=== PATIENT | female | born 1955 | race Caucasian/White ===

== ENCOUNTER 2016-09-27 19:42 | Inpatient (IN) | payer BC, OTHER ==
[~2016-09-27] VITALS: Ht 175.3 cm; Wt 81.8 kg
[~2016-09-27 19:42] MED LIST: ASPI81TA28 PO; ATOR-22 PO; CITA10TA8 PO; ELQ25 PO; POTA-331 PO; PRLSR20 PO; TPRSR25 PO; VTMD PO
[2016-09-27] MEDS ORDERED: CYCLOBENZAPRINE HCL 10 MG TAB PO STA (21:19)
[2016-09-27] MEDS ORDERED: HYDROmorphone INJ 1 MG/ML SYR IM STA (21:19)
[2016-09-27] MEDS ORDERED: METHYLPREDNISOLONE 125 MG VIAL IM STA (21:19)
[2016-09-27] MEDS ORDERED: HYDROmorphone INJ 1 MG/ML SYR IV STA (21:22)
[2016-09-27] MEDS ORDERED: METHYLPREDNISOLONE 125 MG VIAL IV STA (21:22)
[2016-09-27] MEDS ORDERED: POTA10TA32 PO (21:32)
[2016-09-27] MEDS ORDERED: METO25TA3 PO (21:32)
[2016-09-27] MEDS ORDERED: LISI-729 PO (21:32)
[2016-09-27] MEDS ORDERED: RALO60TA12 PO (21:32)
[2016-09-27] MEDS ORDERED: LPT/40 PO (21:32)
[2016-09-27] MEDS ORDERED: CETI10TA84 PO (21:32)
--- NOTE | 2016-09-27 21:32 | EMERGENCY ROOM VISIT NOTE ---
History Report prepared by Chuck: Len Graham Under the Supervision of: Dr. Nola Monreal M.D. First contact with patient: 21:17 Chief Complaint: BACK PAIN Stated Complaint: BACK PAIN, UNABLE TO MOVE LEGS History of Present Illness The patient is a 61 year old female who presents to the Emergency Room with complaints of severe and worsening lower back pain that began that began 1.5 hours prior to arrival. She is having pain in her lower back bilaterally, but states it is much worse in her left. She also has pain radiating down the back of her left leg into her leg ankle. The patient states that she was fine all day today, she ran multiple errands and walked her dog. Her pain onset suddenly while cooking dinner. She could not walk to the door under her own power after her pain onset. The patient has had multiple cases of melanoma in the past, and has had breast cancer. She never received any chemotherapy treatments. Source of History: patient Onset: 1.5 hours [employer] Position: back (lower) Symptom Intensity: severe Timing: worsening Note: Pain is radiating down left leg. Review of Systems See HPI for pertinent positives & negatives. A total of 10 systems reviewed and were otherwise negative. Past Medical & Surgical Medical Problems: (1) Back pain (2) HTN (hypertension) (3) Hyperlipidemia (4) Melanoma (5) Paroxysmal atrial fibrillation (6) UTI (urinary tract infection) Surgical Problems: (1) H/O adenoidectomy (2) S/P appendectomy (3) S/P partial hysterectomy Family History Hypertension Social History Smoking Status: Never Smoker Alcohol Use: none Marital Status: single Housing Status: lives alone Occupation Status: retired Current/Historical Medications Scheduled Aspirin (Aspirin Ec), 81 MG PO HS Atorvastatin (Lipitor), 40 MG PO HS Cetirizine (Zyrtec), 10 MG PO HS Citalopram Hydrobromide (Celexa), 10 MG PO HS Cyclobenzaprine HCl (Cyclobenzaprine HCl), 10 MG PO TID Ergocalciferol (Vitamin D), 50,000 INTER.UNIT PO WK Lisinopril (Zestril), 5 MG PO HS Metoprolol Succinate (Toprol Xl), 50 MG PO QAM Omeprazole (Prilosec), 20 MG PO HS Potassium Chloride Microencaps (Potassium Chloride Er), 10 MEQ PO QAM Raloxifene Hcl (Evista), 60 MG PO QAM Scheduled PRN Docusate Sodium (Colace), 1 CAP PO DAILY PRN for Constipation Oxycodone/Acetaminophen 5MG/325MG (Percocet 5MG/325MG), 1-2 TABLETS PO Q6 PRN for Pain Polyethylene (Miralax), 1 TBS PO DAILY PRN for Constipation Durable Medical Equipment Misc. Devices (Getgo Rolling Walker), EA Allergies Coded Allergies: Naproxen (Verified Allergy, Severe, Hives and swelling of the throat, 09/27) Ibuprofen (Verified Allergy, Intermediate, Hives, 09/27/16) POLLEN (Verified Allergy, Unknown, 10/20/06) Nitrofurantoin (Verified Adverse Reaction, Severe, HEPATITIS, 02/06/11) Clavulanic Acid (Unverified Adverse Reaction, Mild, NAUSEA = BetaLactomase inhibitors, 09/05/14) Physical Exam Vital Signs Date Time Temp Pulse Resp B/P Pulse Ox O2 Delivery O2 Flow Rate FiO2 09/28/16 00:32 80 16 167/93 100 Room Air 09/27/16 21:44 82 16 138/83 100 Room Air 09/27/16 19:47 36.7 66 16 157/101 98 Physical Exam Vital signs reviewed. General: Well-appearing female, in mild distress and somewhat agitated HEENT: No scleral icterus, PERRLA, neck supple. Atraumatic. Cardiovascular: Regular rate and rhythm, no extra sounds. Pulmonary: Clear to auscultation bilaterally, normal work of breathing. Abdomen: Soft, nontender, nondistended, positive bowel sounds. Musculoskeletal: Atraumatic, no peripheral edema. BACK: There is tenderness to the lumbar paraspinous muscles, no tenderness along the lumbar spine. Positive left straight leg raise. Equal strength in bilateral lower extremities. Neurologic: Patient awake alert and oriented x 3, full strength in all 4 extremities. Cranial nerves 2 through 12 grossly intact. Skin: Warm, dry, no rash Medical Decision & Procedures ER Provider Diagnostic Interpretation: X-ray results as stated below per my interpretation and radiologist interpretation. Other radiology results as stated below per my review and radiologist interpretation: L-SPINE MIN 4 VIEWS ROUTINE CLINICAL HISTORY: Low back pain with left lower extremity radiculopathy. COMPARISON STUDY: No previous studies for comparison. FINDINGS: There is an age-indeterminate superior endplate L1 compression deformity. There is an old superior endplate T11 can cavity. There are multilevel degenerative changes. No subluxations are visualized. No destructive lesions are evident. There is a transitional vertebra with partial sacralization of the L5 vertebra. IMPRESSION: 1. Mild multilevel degenerative changes 2. Mild age-indeterminate superior endplate L1 compression deformity 3. No subluxations identified Electronically signed by: Dominic Vergara M.D. 09/27/2016 10:35 PM Dictated Date/Time: 09/27/2016 10:32 PM CHEST X-RAY: Laboratory Results Test 09/27/16 21:30 09/27/16 21:55 09/27/16 22:45 Urine Color YELLOW Urine Appearance CLEAR (CLEAR) Urine pH 6.0 (4.5-7.5) Urine Specific [place] 1.007 (1.000-1.030) Urine Protein NEG (NEG) Urine Glucose (UA) NEG (NEG) Urine Ketones NEG (NEG) Urine Occult Blood NEG (NEG) Urine Nitrite NEG (NEG) Urine Bilirubin NEG (NEG) Urine Urobilinogen NEG (NEG) Urine Leukocyte Esterase NEG (NEG) Immature Granulocyte % (Auto) 0.4 % White Blood Count 13.59 K/uL (4.8-10.8) Red Blood Count 3.73 M/uL (4.2-5.4) Hemoglobin 13.0 g/dL (12.0-16.0) Hematocrit 37.7 % (37-47) Mean Corpuscular Volume 101.1 fL (80-100) Mean Corpuscular Hemoglobin 34.9 pg (25-34) Mean Corpuscular Hemoglobin Concent 34.5 g/dl (32-36) Platelet Count 317 K/uL (130-400) Mean Platelet Volume 9.3 fL (7.4-10.4) Neutrophils (%) (Auto) 77.0 % Lymphocytes (%) (Auto) 15.8 % Monocytes (%) (Auto) 6.5 % Eosinophils (%) (Auto) 0.2 % Basophils (%) (Auto) 0.1 % Neutrophils # (Auto) 10.45 K/uL (1.4-6.5) Lymphocytes # (Auto) 2.15 K/uL (1.2-3.4) Monocytes # (Auto) 0.89 K/uL (0.11-0.59) Eosinophils # (Auto) 0.03 K/uL (0-0.5) Basophils # (Auto) 0.02 K/uL (0-0.2) Immature Granulocyte # (Auto) 0.05 K/uL (0.00-0.02) Magnesium Level 1.9 mg/dl (1.8-2.4) Total Bilirubin 0.3 mg/dl (0.2-1) Direct Bilirubin 0.1 mg/dl (0-0.2) Aspartate Amino Transf (AST/SGOT) 89 U/L (15-37) Alanine Aminotransferase (ALT/SGPT) 63 U/L (12-78) Alkaline Phosphatase 90 U/L (45-117) Total Protein 7.8 gm/dl (6.4-8.2) Albumin 3.9 gm/dl (3.4-5.0) Ethyl Alcohol mg/dL 175.0 mg/dl (0-3) Laboratory results per my review. Medications Administered Medications (Trade) Dose Ordered Sig/Jerardo Route Start Time Stop Time Status Last Admin Dose Admin Cyclobenzaprine HCl (Flexeril Tab) 10 mg NOW STAT PO 09/27/16 21:19 09/27/16 21:21 DC 09/27/16 21:46 10 MG Hydromorphone HCl (Dilaudid Inj) 1 mg NOW STAT IV 09/27/16 21:22 09/27/16 21:25 DC 09/27/16 21:48 1 MG Methylprednisolone Sodium Succinate (Solu-Medrol IV) 125 mg NOW STAT IV 09/27/16 21:22 09/27/16 21:25 DC 09/27/16 21:47 125 MG ED Course 2117: Past medical records reviewed. The patient was evaluated in room A11. A complete history and physical examination was performed. 2118: Ordered Cyclobenzaprine 10 mg PO, Methylprednisolone 125 mg IM, Dilaudid 1 mg IM. 2121: Ordered Methylprednisolone 125 mg IV, Dilaudid 1 mg IV. 2355: I discussed the case with Dr. Farah [facility] Hospitalist, he will evaluate the patient for further treatment. Medical Decision Differential diagnosis: Etiologies such as musculoskeletal, disc herniation, fracture, aortic disease, metastatic disease, cord compression, discitis, infection, renal colic, gastrointestinal, acute exacerbation of chronic back pain, sciatica, cauda equina, as well as others were entertained. This pt was evaluated and appeared to be in no distress. IV access was obtained and lab work was drawn. Pt was medicated with po flexeril, IV dilaudid and solu-medral. Lumbar spine XR were obtained and read as above, with an L1 superior endplate fracture. Pt was feeling improved but failed an ambulation trial. She is unable to ambulate d/t pain. Pt will be evaluated by the hospitalist service for further management. Consults Time Called: [phone] Consulting Physician: Dr. Sofi Vickers Hospitalist Returned Call: [phone] I discussed the case with Dr. Sofi Vickers Hospitalist, he will evaluate the patient for further treatment. Impression Primary Impression: Compression fracture of L1 lumbar vertebra Additional Impression: Lumbar pain Scribe Attestation The scribe's documentation has been prepared under my direction and personally reviewed by me in its entirety. I confirm that the note above accurately reflects all work, treatment, procedures, and medical decision making performed by me. Departure Information Dispostion Being Evaluated By Hospitalist Prescriptions Docusate Sodium (COLACE) 100 Mg Cap 1 CAP PO DAILY Y for Constipation, #30 CAP OVER THE COUNTER Prov: Rosa Telles M.D. 09/29/16 Polyethylene (Miralax) 17 Gm Pow 1 TBS PO DAILY Y for Constipation for 14 Days OVER THE COUNTER MIX IN 8 OZ OF WATER OR ANY BEVERAGE Prov: Rosa Telles M.D. 09/29/16 Misc. Devices (GETGO ROLLING WALKER) 1 Mis Mis EA, #1 Prov: Rosa Telles M.D. 09/29/16 Oxycodone/Acetaminophen 5MG/325MG (PERCOCET 5MG/325MG) Tab 1-2 TABLETS PO Q6 Y for Pain, #30 TAB Prov: Rosa Telles M.D. 09/29/16 Cyclobenzaprine HCl (Cyclobenzaprine HCl) 10 Mg Tab 10 MG PO TID for 30 Days, #90 TAB Prov: Rosa Telles M.D. 09/29/16 Referrals No Doctor, Assigned (PCP) Patient Instructions My [facility] Problem Qualifiers Primary Impression: Compression fracture of L1 lumbar vertebra Encounter type: initial encounter Fracture type: closed Qualified Codes: S32.010A - Wedge compression fracture of first lumbar vertebra, initial encounter for closed fracture Additional Impression: Lumbar pain Chronicity: acute Back pain laterality: left
[2016-09-27 21:58] LABS: URINE APPEARANCE CLEAR (CLEAR); URINE BILIRUBIN NEG (NEG); URINE COLOR YELLOW; URINE NITRITE NEG (NEG); URINE SPECIFIC GRAVITY 1.007 (1.000-1.030); UROBILINOGEN NEG (NEG); ZZUR CULT IF INDIC CLEAN CATCH NO
[2016-09-27 22:02] LABS: MANUAL MICROSCOPIC REQUIRED? NO; REVIEW REQ? NO
[2016-09-27 22:11] LABS: BASO % 0.1 %; BASO ABS # 0.02 K/uL (0-0.2); COMPLETE YES; EOS % 0.2 %; HEMATOCRIT 37.7 % (37-47); IG% 0.4 %; LYMPH % 15.8 %; LYMPH ABS # 2.15 K/uL (1.2-3.4); MEAN CELL VOLUME 101.1 fL (80-100); MEAN CORPUSCULAR HEMOGLOBIN 34.9 pg (25-34); MEAN CORPUSCULAR HGB CONC 34.5 g/dl (32-36); MEAN PLATELET VOLUME 9.3 fL (7.4-10.4); MONO % 6.5 %; PLATELET COUNT 317 K/uL (130-400); RED BLOOD COUNT 3.73 M/uL (4.2-5.4); WHITE BLOOD COUNT 13.59 K/uL (4.8-10.8)
[2016-09-27 22:29] LABS: BUN/CREATININE RATIO 12.5 (10-20); CREATININE 0.67 mg/dl (0.60-1.20); MAGNESIUM 1.9 mg/dl (1.8-2.4); POTASSIUM 3.8 mmol/L (3.5-5.1)
--- NOTE | 2016-09-27 22:37 | DIAGNOSTIC IMAGING REPORT ---
L-SPINE MIN 4 VIEWS ROUTINE CLINICAL HISTORY: Low back pain with left lower extremity radiculopathy. COMPARISON STUDY: No previous studies for comparison. FINDINGS: There is an age-indeterminate superior endplate L1 compression deformity. There is an old superior endplate T11 can cavity. There are multilevel degenerative changes. No subluxations are visualized. No destructive lesions are evident. There is a transitional vertebra with partial sacralization of the L5 vertebra. IMPRESSION: 1. Mild multilevel degenerative changes 2. Mild age-indeterminate superior endplate L1 compression deformity 3. No subluxations identified Electronically signed by: Dominic Vergara M.D. 09/27/2016 10:35 PM Dictated Date/Time: 09/27/2016 10:32 PM
[2016-09-28] VITALS (10 sets, daily range): BP systolic 157–206; BP diastolic 86–101; PULSE 60–74; TEMP 36.5–37.5; O2SAT 93–96; Ht 175.3 cm; Wt 81.8 kg
[2016-09-28] MEDS ORDERED: ONDANSETRON INJ 2 MG/ML 2 ML VIAL IV PRN (00:45)
[2016-09-28] MEDS ORDERED: IV FLUIDS COMPLETED PRN (00:45)
[2016-09-28] MEDS ORDERED: ACETAMINOPHEN 325 MG TAB PO PRN (00:45)
[2016-09-28] MEDS ORDERED: CYCLOBENZAPRINE HCL 10 MG TAB PO STA (00:48)
--- NOTE | 2016-09-28 03:29 | HISTORY & PHYSICAL EXAMINATION ---
DATE OF ADMISSION: 09/28/2016 PRIMARY CARE PHYSICIAN: Dr. Williamson CHIEF COMPLAINT: Sudden onset spasm and pain in the lower lumbar area, radiation to left leg. 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 Apparently, she complains to have occasional spasm involving the back muscles. This morning, she was fine as she went for shopping. She went to different places. She came home in the evening and suddenly she got these spasm and pain involving the left lower lumbar area and the pain went down to the left leg, up to the ankle. She could not move her leg and then she was brought into the Emergency Room for further evaluation. She denies to have any trauma or any fall recently. She does not have any problem with urine and/or bowel habits. In the ER, she was in pain. She could not elevate the leg and apparent tests including x-ray of the lumbar spine did show age-indeterminate superior endplate L1 compression deformity. Labs and imaging studies are unremarkable otherwise, but given the acuteness of the pain and radiculopathy type of pain, she was admitted to medical floor for physical therapy and also further imaging studies of the spine. PAST MEDICAL HISTORY: Significant for atrial fibrillation not on any anticoagulation, hypertension, hyperlipidemia, history of osteoporosis, history of breast cancer status post surgery and history of malignant melanoma of the trunk. PAST SURGICAL HISTORY: Significant for cardiac catheterization in 2006, minimal luminal irregularities, excision of the right breast, carcinoma in situ, adenoid and tonsillectomy as a child, appendectomy and hysterectomy. FAMILY HISTORY: Mother had diabetes. Father had heart disorder. Mother had high blood pressure as well. Both of them are . SOCIAL HISTORY: She is single. She has one child. She lives alone. She does not smoke and she drinks occasionally. Today she had a drink at about 3:00 p.m. REVIEW OF SYSTEMS: CENTRAL NERVOUS SYSTEM: No headache, no blurred vision, no numbness or tingling in the extremities. RESPIRATORY: No cough or phlegm. She did have slight shortness of breath. No fever, chills or rigors. CARDIOVASCULAR: No chest pain, palpitations. GASTROINTESTINAL: No abdominal pain, nausea, vomiting. GENITOURINARY: No problem with urine and/or bowel habits. MUSCULOSKELETAL: Does have pain and spasm involving the left lower lumbar area. No acute arthritis in any joint. HEENT: Unremarkable. GENERAL EXAMINATION: No rash. ALLERGIES: TO AUGMENTIN, IBUPROFEN, NAPROXEN, NITROFURANTOIN AND POLLEN. MEDICATIONS: She has been on aspirin 81 mg daily, Lipitor 40 mg daily, Vasotec 10 mg at night, Celexa 10 mg at night, vitamin D 50,000 units every week, lisinopril 5 mg daily, Toprol-XL 25 mg tablet 50 mg in the morning, potassium chloride 10 mEq, Evista 60 mg daily, omeprazole 20 mg daily. PHYSICAL EXAMINATION: GENERAL: On examination in the Emergency Room, she was still having some localized pain at the lower back, but the pain was not radiating down to the leg at rest. HEENT: Unremarkable. NECK: Supple. No JVD, no bruits. VITAL SIGNS: Temperature 36.7, pulse is 82, blood pressure 138/83, saturation 100% on room air. CHEST: Clear to auscultate bilaterally. HEART: S1, S2, regular, no murmur. ABDOMEN: Soft, benign, nontender, no organomegaly. Bowel sounds present. EXTREMITIES: Negative for any edema. MUSCULOSKELETAL: Did show localized tenderness involving the lower lumbar area on the left side and straight leg rising on the left side was positive with pain radiating down to the left leg. DTRs 2+ in both sides, no sensory impairment. CENTRAL NERVOUS SYSTEM: Alert, awake and oriented x3. LABORATORY DATA: Noted today; white count was 13.59, H\T\H 13.0/37.7, platelet was 317. Sodium 142, potassium 3.8, chloride 104, carbon dioxide 22, BUN 8, creatinine 0.67. LFTs unremarkable. UA examination; unremarkable. Toxicology; alcohol level of 175. Chest x-ray; pending. EKG; pending. Lumbar spine x-ray; did show mild multilevel degenerative changes, mild age-indeterminate superior L1 endplate compression deformity. No subluxation IMPRESSION AND PLAN: 1. Acute lower lumbar pain with spasm. Clinically has radiculopathy, but no significant symptom associated with it. We will admit the patient to medical- surgical floor, give pain medication and antispasmodic medication, get MRI of the lumbar spine to rule out any compression on the nerve endings. We will get physical therapy evaluation and orthopedic consultation depending on the MRI findings. 2. Atrial fibrillation, rate seems to be under control. Get an EKG. Continue current medications. The patient has not been taking any anticoagulation, only on aspirin. 3. Hypertension. Blood pressure seems to be controlled at this time. Continue current medication. 4. History of cancer of breast and history of melanoma. Has been on Evista for breast cancer. To rule out any compression fracture secondary to metastases, but doubt at this time. 5. Hyperlipidemia. Continue current medication. 6. Gastrointestinal prophylaxis with Proton Pump Inhibitor. 7. Deep venous thrombosis prophylaxis with subQ heparin. 8. Code status. She will be full code. In my clinical judgment, the beneficiary meets criteria as per CMS for 2 midnights stay in the hospital. MTDBrad
[2016-09-28 06:00] LABS: PROTHROMBIN TIME (PATIENT) 10.7 SECONDS (9.0-12.0)
[2016-09-28] MEDS: HEPARIN SOD 5000 UNIT/0.5 ML CARP SQ SCH ×2 (06:22→13:58)
[2016-09-28] MEDS: CYCLOBENZAPRINE HCL 5 MG TAB PO SCH ×2 (07:41→13:57)
[2016-09-28] MEDS: RALOXIFENE 60 MG TAB PO SCH (07:41)
[2016-09-28] MEDS: METOPROLOL SUCC 25MG EXT REL TAB PO SCH (07:41)
[2016-09-28] MEDS: POTASSIUM CHLORIDE 10 MEQ TABCR PO SCH (07:42)
--- NOTE | 2016-09-28 09:20 | DIAGNOSTIC IMAGING REPORT ---
SINGLE VIEW CHEST CLINICAL HISTORY: Atypical chest pain. Dyspnea. FINDINGS: An AP, portable, upright chest radiograph is compared to study dated 09/05/2014. The examination is degraded by portable technique, large body habitus, and patient rotation. The heart is mildly enlarged. The pulmonary vasculature is noncongested. Chronic interstitial thickening is similar to previous. There is minimal left basilar atelectasis. No airspace consolidation, large pleural effusion, or pneumothorax is seen. The bony thorax is grossly intact. IMPRESSION: Mild cardiomegaly with no acute cardiopulmonary abnormality. Electronically signed by: Scooby Mitchell M.D. 09/28/2016 9:18 AM Dictated Date/Time: 09/28/2016 9:17 AM
[2016-09-28] MEDS: HYDROmorphone INJ 1 MG/ML SYR IV PRN ×2 (12:05→18:24)
[2016-09-28] MEDS ORDERED: GADAVIST IV PRN (13:30)
--- NOTE | 2016-09-28 14:29 | DIAGNOSTIC IMAGING REPORT ---
MRI LUMBAR SPINE COMBO CLINICAL HISTORY: Low back pain. Lumbar radiculopathy. COMPARISON STUDY: Radiographs of the lumbar spine dated 09/27/2016. TECHNIQUE: MRI of the lumbar spine is performed utilizing various T1 and T2-weighted sequences in the axial and sagittal planes. Contrast-enhanced sequences are acquired following the IV administration of 8 cc of Gadavist. The examination is degraded by motion artifact. FINDINGS: Lumbar spine: Marrow signal intensity is heterogeneous. There is a mild acute to subacute compression fracture of L1. Minimally retropulsed fragments are identified eccentric to the right. These are retropulsed by approximately 4 mm. Vertebral body height is otherwise maintained throughout the lumbar spine. Alignment is preserved. Chronic degenerative endplate change is present at all levels from L2 to L3 through L5-S1. Mild endplate edema is seen at L2-L3 and L3-L4. Small anterior osteophytes are seen throughout. The transverse and spinous processes are grossly intact. There is no spondylolysis. Intervertebral discs: There is degenerative disc desiccation and mild loss of height seen at the levels. Loss of height is greatest at L2-L3 through L4-L5. Spinal cord: Partially imaged spinal cord is normal in morphology and signal intensity. The conus medullaris terminates at the T12-L1 interspace. The nerve roots of the cauda equina are normal in morphology. No abnormal enhancement is identified on the postcontrast series. T12-L1: There is a small posterior disc bulge. The central canal and neural foramina are widely patent. L1-L2: As noted above, there is an acute to subacute compression fracture of L1. There are retropulsed fragments identified eccentric to the right posterior to the L1 vertebral body. There is likely trace surrounding hemorrhage there is the retropulsed fragments extend approximately 1.8 cm in craniocaudal length and measures 7 mm in maximum AP diameter. Fragment may slightly impinge on the transiting right-sided nerve roots. There is no acquired compromise of the central canal. The neural foramina are patent. L2-L3: There is a posterior disc bulge eccentric to the right with annular fissure. The central canal is patent. There is left-sided subarticular stenosis. The neural foramina are clear. L3-L4: There is posterior disc bulge with annular fissure. The central canal is patent. There is mild bilateral subarticular stenosis. Facet arthropathy is of no consequence. The neural foramina are patent. L4-L5: There is posterior disc bulge with annular fissure. The central canal is clear. There is bilateral subarticular stenosis. The neural foramina are patent. Facet arthropathy is of no consequence and there are small facet joint effusions. L5-S1: There is minimal disc bulge with annular fissure. The central canal and neural foramina are patent. Facet joint effusions are incidentally noted. Sacrum: The visualized sacrum is normal in morphology and signal intensity. Soft tissues: There is mild fatty atrophy of the paraspinous musculature. The partially imaged retroperitoneal structures are grossly unremarkable but incompletely assessed. IMPRESSION: 1. There is a mild acute to subacute compression fracture of L1. 2. No additional bony abnormality is seen throughout the lumbar spine. 3. There are retropulsed fragments from the L1 fracture eccentric to the right with trace associated hemorrhage. This causes mild mass effect and may impinge on the transiting right-sided nerve roots. 4. No large disc herniation is seen. Multilevel lumbosacral spondylosis is detailed above. Dictated: 09/28/2016 2:09 PM Transcribed: 09/28/2016 2:28 PM Iliana Electronically signed by: Scooby Mitchell M.D. 09/28/2016 3:16 PM Dictated Date/Time: 09/28/2016 2:09 PM
--- NOTE | 2016-09-28 16:05 | Progress Note ---
Progress Note ATTENDING NOTE : MRI of lumber spine shows : 1. There is a mild acute to subacute compression fracture of L1. 2. No additional bony abnormality is seen throughout the lumbar spine. 3. There are minimally retropulsed fragments from the L1 fracture eccentric to the right. Additionally, there is likely a small volume of epidural hemorrhage eccentric to the right posterior to the L1 vertebral body. This causes minimal mass effect and may impinge on the transiting right-sided nerve roots. 4. No large disc herniation is seen. Multilevel lumbosacral spondylosis is detailed above. Finding D/w spinel Ortho Dr Kaur -small amount of epidural hge due to L1 Fx - may not possible cause any neurological compromise recommends to keep bed rest pain control will D/c Sub q heparin for DVT prophylaxis , hold Aspirin pt will be seen by Ortho in [place] for possible lumber Brace
--- NOTE | 2016-09-28 17:28 | Progress Note ---
Internal Med Progress Note Date of Service: Sep 28, 2016. Provider Documentation: SUBJECTIVE: still having back pain 03/23 with radiation to left leg able to bend both legs at knee denies of any recent fall or trauma was at multiple shopping spots -[employer], [employer] , [employer] with no ambulatory difficult then developed sudden onset of sever back pain no bladder or bowel incontinence , no paresthesia OBJECTIVE: Vital Signs-as noted below Exam: General-no sign of distress Eyes-sclera non icteric ENT-NAD Neck-no thyromegaly , trachea midline Lungs-CTA, no wheeze or rales Heart-regular S1/S2 Abdomen-soft, non tender Extremities-no rash or deformity Neuro-no focal neurological deficit Lab data as noted below. ASSESSMENT & PLAN: Acute lower lumbar pain radiculopathy/L1 fracture : no prior hx of Trauma or fall Xray of lumber spine : MRI of lumber spine: MRI of lumber spine shows : 1. There is a mild acute to subacute compression fracture of L1. 2. No additional bony abnormality is seen throughout the lumbar spine. 3. There are minimally retropulsed fragments from the L1 fracture eccentric to the right. Additionally, there is likely a small volume of epidural hemorrhage eccentric to the right posterior to the L1 vertebral body. This causes minimal mass effect and may impinge on the transiting right-sided nerve roots. 4. No large disc herniation is seen. Multilevel lumbosacral spondylosis is detailed above. Finding D/w spinel Ortho Dr Kaur -small amount of epidural hge due to L1 Fx - may not possible cause any neurological compromise recommends to keep bed rest pain control will D/c Sub q heparin for DVT prophylaxis , hold Aspirin pt will be seen by Ortho in [place] for possible lumber Brace Atrial fibrillation rate and rhythm controlled on beta ramy follows with Cardiology Dr Mcdaniel at [facility] cardiology clinic not on chronic anticoagulation -due to low risk for CVA was on Low dose Aspirin 81 mg daily will hold aspirin for evidence of small epidural Hge in MRI of lumber spine Hypertension. BP elevated possible due to pain /discomfort -cont pain control cont Lopressor /Lisinopril PRN IV hydralazine ordered Hyperlipidemia. cont statin Code status.Full code. DVT PROPHYLAXIS scd and teds avoid pharmacological anticoagulation due to evidence of small epidural Hge DISPOSITION to be determined PT/OT eval when OK by ortho Vital Signs: Date Time Temp Pulse Resp B/P Pulse Ox O2 Delivery O2 Flow Rate FiO2 09/28/16 16:00 Room Air 09/28/16 15:13 36.8 74 16 173/99 94 Room Air 09/28/16 09:03 69 173/92 09/28/16 07:40 197/93 09/28/16 07:30 Room Air 09/28/16 07:29 37.1 61 18 206/101 94 09/28/16 03:35 174/93 09/28/16 01:33 81 16 159/81 100 09/28/16 01:30 37.5 60 16 178/93 93 Room Air 09/28/16 01:30 Room Air 09/28/16 00:32 80 16 167/93 100 Room Air 09/27/16 21:44 82 16 138/83 100 Room Air 09/27/16 19:47 36.7 66 16 157/101 98 Lab Results: Results Past 24 Hours Test 09/27/16 21:30 09/27/16 21:55 09/27/16 22:45 09/28/16 05:30 Range/Units Urine Color YELLOW Urine Appearance CLEAR CLEAR Urine pH 6.0 4.5-7.5 Urine Specific [place] 1.007 1.000-1.030 Urine Protein NEG NEG Urine Glucose (UA) NEG NEG Urine Ketones NEG NEG Urine Occult Blood NEG NEG Urine Nitrite NEG NEG Urine Bilirubin NEG NEG Urine Urobilinogen NEG NEG Urine Leukocyte Esterase NEG NEG White Blood Count 13.59 4.8-10.8 K/uL Red Blood Count 3.73 4.2-5.4 M/uL Hemoglobin 13.0 12.0-16.0 g/dL Hematocrit 37.7 37-47 % Mean Corpuscular Volume 101.1 80-100 fL Mean Corpuscular Hemoglobin 34.9 25-34 pg Mean Corpuscular Hemoglobin Concent 34.5 32-36 g/dl Platelet Count 317 130-400 K/uL Mean Platelet Volume 9.3 7.4-10.4 fL Neutrophils (%) (Auto) 77.0 % Lymphocytes (%) (Auto) 15.8 % Monocytes (%) (Auto) 6.5 % Eosinophils (%) (Auto) 0.2 % Basophils (%) (Auto) 0.1 % Neutrophils # (Auto) 10.45 1.4-6.5 K/uL Lymphocytes # (Auto) 2.15 1.2-3.4 K/uL Monocytes # (Auto) 0.89 0.11-0.59 K/uL Eosinophils # (Auto) 0.03 0-0.5 K/uL Basophils # (Auto) 0.02 0-0.2 K/uL RDW Standard Deviation 51.5 36.4-46.3 fL RDW Coefficient of Variation 13.9 11.5-14.5 % Immature Granulocyte % (Auto) 0.4 % Immature Granulocyte # (Auto) 0.05 0.00-0.02 K/uL Sodium Level 142 136-145 mmol/L Potassium Level 3.8 3.5-5.1 mmol/L Chloride Level 104 98-107 mmol/L Carbon Dioxide Level 22 21-32 mmol/L Anion Gap 16.0 3-11 mmol/L Blood Urea Nitrogen 8 7-18 mg/dl Creatinine 0.67 0.60-1.20 mg/dl Est Creatinine Clear Calc Drug Dose 100.5 ml/min Estimated GFR () 109.2 Estimated GFR (Non- 94.2 BUN/Creatinine Ratio 12.5 10-20 Random Glucose 93 70-99 mg/dl Calcium Level 9.0 8.5-10.1 mg/dl Magnesium Level 1.9 1.8-2.4 mg/dl Total Bilirubin 0.3 0.2-1 mg/dl Direct Bilirubin 0.1 0-0.2 mg/dl Aspartate Amino Transf (AST/SGOT) 89 15-37 U/L Alanine Aminotransferase (ALT/SGPT) 63 12-78 U/L Alkaline Phosphatase 90 45-117 U/L Total Protein 7.8 6.4-8.2 gm/dl Albumin 3.9 3.4-5.0 gm/dl Ethyl Alcohol mg/dL 175.0 0-3 mg/dl Prothrombin Time 10.7 9.0-12.0 SECONDS Prothromb Time International Ratio 1.0 0.9-1.1
[2016-09-28] MEDS ORDERED: HYDROmorphone INJ 1 MG/ML SYR IV PRN (18:30)
[2016-09-28] MEDS ORDERED: HydrALAZINE HCL 20 MG/ML VIAL IV. PRN (18:30)
[2016-09-28] MEDS ORDERED: LORAZEPAM INJ 0.5 MG in SYRINGE 0.75 ML IV PRN (18:30)
[2016-09-28] MEDS ORDERED: SODIUM CHLORIDE 0.9% 1000ML 1,000 ML IV SCH (18:45)
[2016-09-28 19:55] LABS: HEMATOCRIT 32.9 % (37-47); MEAN CELL VOLUME 101.5 fL (80-100); MEAN CORPUSCULAR HEMOGLOBIN 34.9 pg (25-34); MEAN CORPUSCULAR HGB CONC 34.3 g/dl (32-36); MEAN PLATELET VOLUME 9.4 fL (7.4-10.4); PLATELET COUNT 257 K/uL (130-400); RED BLOOD COUNT 3.24 M/uL (4.2-5.4); WHITE BLOOD COUNT 14.99 K/uL (4.8-10.8)
[2016-09-28 20:13] LABS: BUN/CREATININE RATIO 12.5 (10-20); CALCIUM 8.5 mg/dl (8.5-10.1); CREATININE 0.93 mg/dl (0.60-1.20); POTASSIUM 3.8 mmol/L (3.5-5.1)
[2016-09-28] MEDS: PANTOprazole SOD 40 MG TAB PO SCH (20:41)
[2016-09-28] MEDS: LISINOPRIL 5 MG TAB PO SCH (20:41)
[2016-09-28] MEDS: CYCLOBENZAPRINE HCL 10 MG TAB PO SCH (20:41)
[2016-09-28] MEDS: CETIRIZINE HCL 10 MG TAB PO SCH (20:42)
[2016-09-28] MEDS: CITALOPRAM 20 MG TAB PO SCH (20:42)
[2016-09-28] MEDS: ATORVASTATIN 20 MG TAB PO SCH (20:43)
[2016-09-28] MEDS ORDERED: ASPIRIN 81 MG ECTAB PO SCH (21:00)
[2016-09-28] MEDS: HYDROmorphone INJ 2 MG/ML SYR/VIAL IV PRN (23:30)
[2016-09-29 01:21] VITALS: BP 145/91; PULSE 75
[2016-09-29] MEDS: HYDROmorphone INJ 2 MG/ML SYR/VIAL IV PRN ×4 (05:23→22:26)
[2016-09-29 06:16] LABS: HEMATOCRIT 35.2 % (37-47); MEAN CELL VOLUME 101.7 fL (80-100); MEAN CORPUSCULAR HEMOGLOBIN 34.7 pg (25-34); MEAN CORPUSCULAR HGB CONC 34.1 g/dl (32-36); MEAN PLATELET VOLUME 9.9 fL (7.4-10.4); PLATELET COUNT 253 K/uL (130-400); RED BLOOD COUNT 3.46 M/uL (4.2-5.4); WHITE BLOOD COUNT 12.88 K/uL (4.8-10.8)
[2016-09-29 07:23] VITALS: BP 102/65; PULSE 67; TEMP 36.7; O2SAT 95
[2016-09-29 08:42] VITALS: BP 130/75; PULSE 67
[2016-09-29] MEDS: METOPROLOL SUCC 25MG EXT REL TAB PO SCH (08:44)
[2016-09-29] MEDS: CYCLOBENZAPRINE HCL 10 MG TAB PO SCH ×3 (08:44→21:03)
[2016-09-29] MEDS: LIDODERM (LIDOCAINE) PATCH 5% TD SCH (08:44)
[2016-09-29] MEDS: POTASSIUM CHLORIDE 10 MEQ TABCR PO SCH (08:45)
[2016-09-29] MEDS: RALOXIFENE 60 MG TAB PO SCH (08:45)
--- NOTE | 2016-09-29 13:07 | ORTHOPEDIC CONSULTATION ---
DATE OF CONSULTATION: 09/29/2016 CHIEF COMPLAINT: Back pain. HISTORY OF PRESENT ILLNESS: A very pleasant 61-year-old white female that states she began experiencing severe back pain and left leg pain on Thursday evening. It was to the point that she had difficulty ambulating and then was subsequently taken to Emergency Room. She was admitted that evening. An MRI obtained the next day does demonstrate superior endplate fracture of L1 with a small epidural hematoma. Today, she states her back pain is more controlled. Leg symptoms still present, but improved. She has been able to ambulate to the restroom without difficulty. She denies any paresthesias in the lower extremities, any bowel or bladder issues. She denies any strength deficits. She does describe no significant fall or trauma, but states that she did stretch her back Thursday afternoon after a long day of shopping over the stairs. This would be the only mechanical explanation for the fracture. PHYSICAL EXAMINATION: She has good strength to testing, is alert and oriented, is able to sit up in bed. Has some pain with percussion over the thoracolumbar region. No abnormal skin markings. MRI does demonstrate superior endplate fracture of L1 with a small epidural collection of blood and a small retropulsion, but no severe neural compression. ASSESSMENT: L1 compression fracture. PLAN: At this time, we will order a TLSO brace. I am going to ask that she wear this when out of bed. We will see her back in the office in 10-14 days. Update x-rays of the thoracolumbar spine and assess her fracture. She understands and agrees.
[2016-09-29 15:25] VITALS: BP 121/80; PULSE 67; TEMP 36.9; O2SAT 94
[2016-09-29] MEDS ORDERED: FLX10 PO (16:06)
--- NOTE | 2016-09-29 16:07 | Discharge Instructions ---
Discharge Instructions Admission Reason for Admission: A-Fib, Low Back Pain, Lumbar Radiculopathy Discharge Discharge Diagnosis / Problem: BACK PAIN /LUMBER RADICULOPATHY Discharge Goals Goal(s): Improve disease control, Diagnostic testing, Therapeutic intervention Activity Recommendations Activity Limitations: as noted below ( TOLERATED ) Lifting Limitations: no more than 5 pounds (2 WEEKS /TILL SEEN BY ORTHOPEDICS ) CONTINUE TO WEAR TSLO BRACE WHEN OUT OF BED /AMBULATING . Instructions / Follow-Up Instructions / Follow-Up HOSPITAL FOLLOW UP WITH DR MCNULTY on 10/02/2016 @ 11:10 AM [facility] ORTHOPEDICS FOLLOW UP WITH DR BREEN IN 2 WEEKS, PLEASE CALL OFFICE FOR APPOINTMENT DRINK PLENTY OF WATER PAIN MEDICATIONS CAN CAUSE SEVERE CONSTIPATION TAKE COLACE OR MIRALAX ( OVER THE COUNTER NEEDED ) TO PREVENT CONSTIPATION Current Hospital Diet Patient's current hospital diet: AHA Diet (Heart Healthy) Discharge Diet Recommended Diet: AHA Diet (Heart Healthy) Pending Studies Studies pending at discharge: yes List of pending studies: REPEAT XRAY OR THORACO LUMBER SPINE IN [address] BREEN'S OFFICE Medical Emergencies . Who to Call and When: Medical Emergencies: If at any time you feel your situation is an emergency, please call 911 immediately. . Non-Emergent Contact Non-Emergency issues call your: Primary Care Provider . . "Provider Documentation" section prepared by Rosa Telles. VTE Core Measure Inpt VTE Proph given/why not?: [facility] [place] Drug Monitoring Program Search Results: no issues identified
[2016-09-29] MEDS ORDERED: [UNRECOGNIZED DRUG - CODE] (17:10)
[2016-09-29] MEDS ORDERED: OXYC-57 PO (17:10)
[2016-09-29] MEDS ORDERED: DOCU-94 PO (17:21)
[2016-09-29] MEDS ORDERED: MRLP17X PO (17:21)
--- NOTE | 2016-09-29 17:27 | Progress Note ---
Internal Med Progress Note Date of Service: Sep 29, 2016. Provider Documentation: SUBJECTIVE: back pain has much improved evaluated by Orthopedics Brace placed feels much better with brace ,able to walk ,having some radiation pain in left leg no balance issue out pt follow up with Dr Kaur in 2 weeks OBJECTIVE: Vital Signs-as noted below Exam: General-no sign of distress Eyes-sclera non icteric ENT-NAD Neck-no thyromegaly , trachea midline Lungs-CTA, no wheeze or rales Heart-regular S1/S2 Abdomen-soft, non tender Extremities-no rash or deformity Neuro-no focal neurological deficit Lab data as noted below. ASSESSMENT & PLAN: Acute lower lumbar pain radiculopathy/L1 fracture : no prior hx of Trauma or fall Xray of lumber spine : MRI of lumber spine: MRI of lumber spine shows : 1. There is a mild acute to subacute compression fracture of L1. 2. No additional bony abnormality is seen throughout the lumbar spine. 3. There are minimally retropulsed fragments from the L1 fracture eccentric to the right. Additionally, there is likely a small volume of epidural hemorrhage eccentric to the right posterior to the L1 vertebral body. This causes minimal mass effect and may impinge on the transiting right-sided nerve roots. 4. No large disc herniation is seen. Multilevel lumbosacral spondylosis is detailed above. appreciate input form Dr Kaur conservative management TLSO lumber brace placed , pt mentions of improvement of back pain and muscle spasm D/c bedrest OOB as tolerated , pt will benefit with rolling walker -script given use brace while OOB and with ambulation PT/OT eval requested will be discharged home tomorrow out pt follow up with Dr Kaur in 2 weeks will have Xray of thoraco lumber spine in 2 weeks pain control with PO Percocet PRN pt is counselled for bowel regimen script for rolling walker in chart Atrial fibrillation rate and rhythm controlled on beta ramy follows with Cardiology Dr Mcdaniel at [facility] cardiology clinic not on chronic anticoagulation -due to low risk for CVA cont on Low dose Aspirin 81 mg daily Hypertension. BP stable cont Lopressor /Lisinopril PRN IV hydralazine ordered Hyperlipidemia. cont statin Code status.Full code. DVT PROPHYLAXIS scd and teds avoid pharmacological anticoagulation due to evidence of small epidural Hge DISPOSITION Discharge home tomorrow Vital Signs: Date Time Temp Pulse Resp B/P Pulse Ox O2 Delivery O2 Flow Rate FiO2 09/29/16 15:25 36.9 67 18 121/80 94 Room Air 09/29/16 08:42 67 130/75 09/29/16 07:25 Room Air 09/29/16 07:23 36.7 67 18 102/65 95 Room Air 09/29/16 01:21 75 145/91 09/28/16 23:30 Room Air 09/28/16 23:00 36.5 69 16 170/93 96 Room Air 09/28/16 22:21 157/86 09/28/16 20:53 178/92 09/28/16 20:02 36.9 67 18 185/90 95 Room Air Lab Results: Results Past 24 Hours Test 09/28/16 19:47 09/29/16 05:30 Range/Units White Blood Count 14.99 12.88 4.8-10.8 K/uL Red Blood Count 3.24 3.46 4.2-5.4 M/uL Hemoglobin 11.3 12.0 12.0-16.0 g/dL Hematocrit 32.9 35.2 37-47 % Mean Corpuscular Volume 101.5 101.7 80-100 fL Mean Corpuscular Hemoglobin 34.9 34.7 25-34 pg Mean Corpuscular Hemoglobin Concent 34.3 34.1 32-36 g/dl RDW Standard Deviation 51.8 51.7 36.4-46.3 fL RDW Coefficient of Variation 14.0 14.0 11.5-14.5 % Platelet Count 257 253 130-400 K/uL Mean Platelet Volume 9.4 9.9 7.4-10.4 fL Sodium Level 139 136-145 mmol/L Potassium Level 3.8 3.5-5.1 mmol/L Chloride Level 101 98-107 mmol/L Carbon Dioxide Level 23 21-32 mmol/L Anion Gap 15.0 3-11 mmol/L Blood Urea Nitrogen 12 7-18 mg/dl Creatinine 0.93 0.60-1.20 mg/dl Est Creatinine Clear Calc Drug Dose 71.7 ml/min Estimated GFR () 76.3 Estimated GFR (Non- 65.9 BUN/Creatinine Ratio 12.5 10-20 Random Glucose 145 70-99 mg/dl Calcium Level 8.5 8.5-10.1 mg/dl Hepatitis C Antibody Screen NEG NEG
[2016-09-29] MEDS ORDERED: POLYETHYLENE (MIRALAX) 17 GM PACK PO PRN (17:30)
[2016-09-29] MEDS ORDERED: OXYCODONE/ACETAMINOPHEN 5-325 TAB PO PRN (17:30)
[2016-09-29] MEDS: PANTOprazole SOD 40 MG TAB PO SCH (21:03)
[2016-09-29] MEDS: ATORVASTATIN 20 MG TAB PO SCH (21:03)
[2016-09-29] MEDS: LISINOPRIL 5 MG TAB PO SCH (21:04)
[2016-09-29] MEDS: CETIRIZINE HCL 10 MG TAB PO SCH (21:07)
[2016-09-29] MEDS: CITALOPRAM 20 MG TAB PO SCH (21:07)
[2016-09-29] MEDS: ASPIRIN 81 MG ECTAB PO SCH (21:39)
[2016-09-29] MEDS: DOCUSATE SODIUM 100 MG CAP PO SCH (21:39)
[2016-09-29 23:35] VITALS: BP 136/80; PULSE 76; TEMP 37.2; O2SAT 92
[2016-09-30] MEDS: HYDROmorphone INJ 2 MG/ML SYR/VIAL IV PRN ×3 (03:44→15:47)
[2016-09-30 07:06] VITALS: BP 112/54; PULSE 71; TEMP 36.8; O2SAT 91
[2016-09-30] MEDS: OXYCODONE/ACETAMINOPHEN 5-325 TAB PO PRN ×3 (07:24→20:57)
[2016-09-30 08:33] VITALS: BP 125/78; PULSE 75
[2016-09-30] MEDS: DOCUSATE SODIUM 100 MG CAP PO SCH ×2 (08:34→20:45)
[2016-09-30] MEDS: CYCLOBENZAPRINE HCL 10 MG TAB PO SCH ×3 (08:34→20:48)
[2016-09-30] MEDS: RALOXIFENE 60 MG TAB PO SCH (08:35)
[2016-09-30] MEDS: POTASSIUM CHLORIDE 10 MEQ TABCR PO SCH (08:35)
[2016-09-30] MEDS: METOPROLOL SUCC 25MG EXT REL TAB PO SCH (08:35)
[2016-09-30] MEDS: LIDODERM (LIDOCAINE) PATCH 5% TD SCH (08:36)
--- NOTE | 2016-09-30 14:24 | Progress Note ---
Internal Med Progress Note Date of Service: Sep 30, 2016. Provider Documentation: SUBJECTIVE: having some back pain today wants to know if she can stay overnight and go home tomorrow as pain gets better control no fever or chills had some rash on back of her legs -due to hospital fabrics /bedsheets ( pt is allergic to harsh detergents ) using her own bedsheets form home itching on her back of her legs has improved OBJECTIVE: Vital Signs-as noted below Exam: General-no sign of distress Eyes-sclera non icteric ENT-NAD Neck-no thyromegaly , trachea midline Lungs-CTA, no wheeze or rales Heart-regular S1/S2 Abdomen-soft, non tender Extremities-small rash on back of legs bilat , improving , minimum itching Neuro-no focal neurological deficit Lab data as noted below. ASSESSMENT & PLAN: Acute lower lumbar pain radiculopathy/L1 fracture : no prior hx of Trauma or fall Xray of lumber spine : MRI of lumber spine shows : 1. There is a mild acute to subacute compression fracture of L1. 2. No additional bony abnormality is seen throughout the lumbar spine. 3. There are minimally retropulsed fragments from the L1 fracture eccentric to the right. Additionally, there is likely a small volume of epidural hemorrhage eccentric to the right posterior to the L1 vertebral body. This causes minimal mass effect and may impinge on the transiting right-sided nerve roots. 4. No large disc herniation is seen. Multilevel lumbosacral spondylosis is detailed above. appreciate input form Dr Kaur conservative management TLSO lumber brace placed , pt mentions of improvement of back pain and muscle spasm pt feels much improvement of her back pain after the brace placement OOB as tolerated , pt will benefit with rolling walker -script given appreciate manager generation input RW will be delivered to patient room prior to discharge PT/OT martlel requested back pain was much better yesterday started to experience worsening of back pain today after going to bathroom this AM wants to stay overnight to se her symptom improves will be discharged home tomorrow out pt follow up with Dr Kaur in 2 weeks will have Xray of thoraco lumber spine in 2 weeks pain control with PO Percocet PRN pt is counselled for bowel regimen MILD LEUKOCYTOSIS : possible due to stress /dehydration no sign of infection blood cell count improving follow CBC Atrial fibrillation rate and rhythm controlled on beta ramy follows with Cardiology Dr Mcdaniel at [facility] cardiology clinic not on chronic anticoagulation -due to low risk for CVA cont on Low dose Aspirin 81 mg daily Hypertension. BP stable cont Lopressor /Lisinopril Hyperlipidemia. cont statin Code status.Full code. DVT PROPHYLAXIS scd and teds avoid pharmacological anticoagulation due to evidence of small epidural Hge DISPOSITION Discharge home tomorrow 10/01/16 Vital Signs: Date Time Temp Pulse Resp B/P Pulse Ox O2 Delivery O2 Flow Rate FiO2 09/30/16 08:33 75 125/78 09/30/16 07:25 Room Air 09/30/16 07:06 36.8 71 18 112/54 91 Room Air 09/30/16 00:15 Room Air 09/29/16 23:35 37.2 76 18 136/80 92 Room Air 09/29/16 20:00 Room Air 09/29/16 15:25 36.9 67 18 121/80 94 Room Air Lab Results: Results Past 24 Hours Test 09/30/16 14:17 Range/Units
[2016-09-30 14:59] VITALS: BP 122/80; PULSE 67; TEMP 36.9; O2SAT 93
[2016-09-30] MEDS: HYDROCORTISONE 1% CR 30 GM TUBE EXT SCH ×2 (15:00→20:43)
[2016-09-30] MEDS: DiphenhydrAMINE 2%/ZINC 0.1% CREAM 28GM TUBE EXT PRN ×2 (15:04→20:44)
[2016-09-30 15:07] LABS: HEMATOCRIT 33.5 % (37-47); MEAN CELL VOLUME 104.7 fL (80-100); MEAN CORPUSCULAR HEMOGLOBIN 34.4 pg (25-34); MEAN PLATELET VOLUME 9.8 fL (7.4-10.4); PLATELET COUNT 221 K/uL (130-400); WHITE BLOOD COUNT 9.23 K/uL (4.8-10.8)
[2016-09-30 15:16] LABS: MEAN CORPUSCULAR HGB CONC 32.8 g/dl (32-36)
[2016-09-30 15:25] VITALS: O2SAT 93
[2016-09-30] MEDS: CITALOPRAM 20 MG TAB PO SCH (20:45)
[2016-09-30] MEDS: ASPIRIN 81 MG ECTAB PO SCH (20:46)
[2016-09-30] MEDS: LISINOPRIL 5 MG TAB PO SCH (20:47)
[2016-09-30] MEDS: PANTOprazole SOD 40 MG TAB PO SCH (20:48)
[2016-09-30] MEDS: ATORVASTATIN 20 MG TAB PO SCH (20:48)
[2016-09-30] MEDS: CETIRIZINE HCL 10 MG TAB PO SCH (20:49)
[2016-09-30 22:55] VITALS: BP 146/89; PULSE 65; TEMP 37; O2SAT 100
[2016-10-01] MEDS: HYDROmorphone INJ 2 MG/ML SYR/VIAL IV PRN (05:26)
[2016-10-01 06:27] LABS: HEMATOCRIT 33.4 % (37-47); MEAN CELL VOLUME 104.7 fL (80-100); MEAN CORPUSCULAR HEMOGLOBIN 34.8 pg (25-34); MEAN CORPUSCULAR HGB CONC 33.2 g/dl (32-36); MEAN PLATELET VOLUME 9.9 fL (7.4-10.4); PLATELET COUNT 206 K/uL (130-400); RED BLOOD COUNT 3.19 M/uL (4.2-5.4); WHITE BLOOD COUNT 8.45 K/uL (4.8-10.8)
[2016-10-01 07:08] VITALS: BP 135/80; PULSE 76; TEMP 36.8; O2SAT 92
[2016-10-01 07:36] VITALS: BP 125/82; PULSE 76; TEMP 36.9; O2SAT 92
[2016-10-01] MEDS: OXYCODONE/ACETAMINOPHEN 5-325 TAB PO PRN ×2 (08:30→12:33)
[2016-10-01] MEDS: HYDROCORTISONE 1% CR 30 GM TUBE EXT SCH (08:31)
[2016-10-01] MEDS: DiphenhydrAMINE 2%/ZINC 0.1% CREAM 28GM TUBE EXT PRN (08:32)
[2016-10-01] MEDS: CYCLOBENZAPRINE HCL 10 MG TAB PO SCH (08:32)
[2016-10-01] MEDS: POTASSIUM CHLORIDE 10 MEQ TABCR PO SCH (08:33)
[2016-10-01] MEDS: DOCUSATE SODIUM 100 MG CAP PO SCH (08:34)
[2016-10-01] MEDS: RALOXIFENE 60 MG TAB PO SCH (08:34)
[2016-10-01] MEDS: METOPROLOL SUCC 25MG EXT REL TAB PO SCH (08:36)
[2016-10-01] MEDS: LIDODERM (LIDOCAINE) PATCH 5% TD SCH (08:37)
--- NOTE | 2016-10-01 12:52 | Progress Note ---
Subjective Date of Service: Oct 01, 2016. Subjective Pt evaluation today including: conversation w/ patient, physical exam, lab review, review of studies, review of inpatient medication list Saw/examined the patient in room 352 Pain controlled today Eager to get home No other issues to note Review of Systems Constitutional: No chills, No fever Respiratory: No shortness of breath Cardiac: No chest pain Abdomen: No diarrhea, No nausea, No pain, No vomiting Musculoskeletal: + joint pain (back pain) Heme: No abnormal bleeding/bruising Medications Current Inpatient Medications Medications (Trade) Dose Ordered Sig/Jerardo Route Start Time Stop Time Status Last Admin Dose Admin Acetaminophen (Tylenol Tab) 650 mg Q4H PRN PO 09/28/16 00:45 10/28/16 00:44 09/28/16 15:50 650 MG Ondansetron HCl (Zofran Inj) 4 mg Q6H PRN IV 09/28/16 00:45 10/28/16 00:44 Atorvastatin Calcium (Lipitor Tab) 40 mg HS PO 09/28/16 21:00 10/28/16 20:59 09/30/16 20:48 40 MG Cetirizine HCl (zyrTEC TAB) 10 mg HS PO 09/28/16 21:00 10/28/16 20:59 09/30/16 20:49 10 MG Citalopram Hydrobromide (celeXA TAB) 10 mg HS PO 09/28/16 21:00 10/28/16 20:59 09/30/16 20:45 10 MG Lisinopril (Zestril Tab) 5 mg HS PO 09/28/16 21:00 10/28/16 20:59 09/30/16 20:47 5 MG Metoprolol Succinate (Toprol Xl Tab) 50 mg QAM PO 09/28/16 09:00 10/28/16 08:59 10/01/16 08:36 50 MG Potassium Chloride (Klor-Con M10) 10 meq QAM PO 09/28/16 09:00 10/28/16 08:59 10/01/16 08:33 10 MEQ Raloxifene HCl (Evista Tab) 60 mg QAM PO 09/28/16 09:00 10/28/16 08:59 10/01/16 08:34 60 MG Pantoprazole Sodium (Protonix Tab) 40 mg HS PO 09/28/16 21:00 10/28/16 20:59 09/30/16 20:48 40 MG Miscellaneous (Iv Fluids Completed) 1 ea PRN PRN N/A 09/28/16 00:45 09/28/17 00:44 Gadobutrol (Gadavist) 8 mmol UD PRN IV 09/28/16 13:30 10/02/16 13:29 Hydromorphone HCl (Dilaudid Inj) 1 mg Q4H PRN IV 09/28/16 18:30 10/12/16 18:29 09/30/16 22:18 1 MG Hydromorphone HCl (Dilaudid Inj) 2 mg Q4H PRN IV 09/28/16 18:30 10/12/16 18:29 10/01/16 05:26 2 MG Lidocaine (Lidoderm Patch 5%) 1 patch QAM TD 09/29/16 09:00 10/29/16 08:59 10/01/16 08:37 1 PATCH Miscellaneous (Remove Lidoderm Patch) 1 ea DAILY@21 N/A 09/29/16 21:00 10/29/16 20:59 09/30/16 20:43 1 EA Hydralazine HCl 10 mg 10 mg Q8H PRN IV. 09/28/16 18:30 10/28/16 18:29 09/28/16 19:39 10 MG Lorazepam/Syringe (Ativan Inj/ Syringe) 1 ml @ 1 mls/min Q8H PRN IV 09/28/16 18:30 10/28/16 18:29 Cyclobenzaprine HCl (Flexeril Tab) 10 mg TID PO 09/28/16 21:00 10/28/16 20:59 10/01/16 08:32 10 MG Diphenhydramine HCl (Benadryl Cap) 25 mg Q6 PRN PO 09/29/16 14:00 10/29/16 13:59 09/29/16 14:04 25 MG Oxycodone/ Acetaminophen (Percocet 5-325MG Tab) 1 tab Q4H PRN PO 09/29/16 17:30 10/13/16 17:29 09/30/16 00:23 1 TAB Oxycodone/ Acetaminophen (Percocet 5-325MG Tab) 2 tab Q4H PRN PO 09/29/16 17:30 10/13/16 17:29 10/01/16 12:33 2 TAB Docusate Sodium (coLACE CAP) 100 mg BID PO 09/29/16 21:00 10/29/16 20:59 10/01/16 08:34 100 MG Polyethylene (Miralax Powder Packet) 17 gm DAILY PRN PO 09/29/16 17:30 10/29/16 17:29 Aspirin (Ecotrin Tab) 81 mg HS PO 09/29/16 21:00 10/29/16 20:59 09/30/16 20:46 81 MG Diphenhydramine HCl (Benadryl Extra Strength Cream) 1 appln Q6 PRN EXT 09/30/16 14:30 10/30/16 14:29 10/01/16 08:32 1 APPLN Hydrocortisone (Hydrocortisone 1% Crm) 1 appln BID EXT 09/30/16 15:00 10/30/16 14:59 10/01/16 08:31 1 APPLN Objective Vital Signs Date Time Temp Pulse Resp B/P Pulse Ox O2 Delivery O2 Flow Rate FiO2 10/01/16 07:36 36.9 76 12 125/82 92 Room Air 10/01/16 07:32 Room Air 10/01/16 07:08 36.8 76 18 135/80 92 Room Air 09/30/16 23:50 Room Air 09/30/16 22:55 37.0 65 16 146/89 100 Room Air 09/30/16 15:25 93 Room Air 09/30/16 14:59 36.9 67 18 122/80 93 Room Air Physical Exam General Appearance: no apparent distress Respiratory/Chest: lungs clear, normal breath sounds, no respiratory distress, no accessory muscle use Cardiovascular: regular rate, rhythm, no edema, no murmur Abdomen: normal bowel sounds, non tender, soft Extremities: normal inspection, no pedal edema, + pertinent finding (back brace on) Neurologic/Psychiatric: no motor/sensory deficits, alert, normal mood/affect Laboratory Results Last 24 Hours Test 09/30/16 14:44 10/01/16 05:56 White Blood Count 9.23 K/uL 8.45 K/uL Red Blood Count 3.20 M/uL 3.19 M/uL Hemoglobin 11.0 g/dL 11.1 g/dL Hematocrit 33.5 % 33.4 % Mean Corpuscular Volume 104.7 fL 104.7 fL Mean Corpuscular Hemoglobin 34.4 pg 34.8 pg Mean Corpuscular Hemoglobin Concent 32.8 g/dl 33.2 g/dl RDW Standard Deviation 52.9 fL 51.7 fL RDW Coefficient of Variation 13.7 % 13.6 % Platelet Count 221 K/uL 206 K/uL Mean Platelet Volume 9.8 fL 9.9 fL Assessment and Plan Acute lower lumbar pain radiculopathy/L1 fracture : 10/01 Patient may be discharged home today Outpatient follow-up with Dr. Kaur in 2 weeks Will be discharged with prescription for percocet and walker TLSO brace no prior hx of Trauma or fall Xray of lumber spine : MRI of lumber spine shows : 1. There is a mild acute to subacute compression fracture of L1. 2. No additional bony abnormality is seen throughout the lumbar spine. 3. There are minimally retropulsed fragments from the L1 fracture eccentric to the right. Additionally, there is likely a small volume of epidural hemorrhage eccentric to the right posterior to the L1 vertebral body. This causes minimal mass effect and may impinge on the transiting right-sided nerve roots. 4. No large disc herniation is seen. Multilevel lumbosacral spondylosis is detailed above. appreciate input form Dr Kaur conservative management TLSO lumber brace placed , pt mentions of improvement of back pain and muscle spasm pt feels much improvement of her back pain after the brace placement OOB as tolerated , pt will benefit with rolling walker -script given appreciate clinical resource manager input RW will be delivered to patient room prior to discharge PT/OT martell requested back pain was much better yesterday started to experience worsening of back pain today after going to bathroom this AM wants to stay overnight to se her symptom improves will be discharged home tomorrow out pt follow up with Dr Kaur in 2 weeks will have Xray of thoraco lumber spine in 2 weeks pain control with PO Percocet PRN pt is counselled for bowel regimen MILD LEUKOCYTOSIS : possible due to stress /dehydration no sign of infection blood cell count improving follow CBC Atrial fibrillation rate and rhythm controlled on beta ramy follows with Cardiology Dr Mcdaniel at [facility] cardiology clinic not on chronic anticoagulation -due to low risk for CVA cont on Low dose Aspirin 81 mg daily Hypertension. BP stable cont Lopressor /Lisinopril Hyperlipidemia. cont statin Code status.Full code. DVT PROPHYLAXIS scd and teds avoid pharmacological anticoagulation due to evidence of small epidural Hge DISPOSITION Discharge home tomorrow 10/01/16
[2016-10-01 12:53] VITALS: BP 125/82; PULSE 76; TEMP 36.9; O2SAT 92
--- NOTE | 2016-10-01 12:55 | Discharge Summary ---
Discharge Summary Admission Date: Sep 28, 2016 at 16:03 Discharge Date: Sep 29, 2016 Discharge Disposition: Home Principal Diagnosis: Acute lower lumbar pain radiculopathy/L1 fracture : Medication Reconciliation New Medications: Docusate Sodium (Colace) 100 Mg Cap 1 CAP PO DAILY PRN for Constipation, #30 CAP OVER THE COUNTER Misc. Devices ([place]go Rolling Walker) 1 Mis Mis EA, #1 Oxycodone/Acetaminophen 5MG/325MG (Percocet 5MG/325MG) Tab 1-2 TABLETS PO Q6 PRN for Pain, #30 TAB Polyethylene (Miralax) 17 Gm Pow 1 TBS PO DAILY PRN for Constipation for 14 Days OVER THE COUNTER MIX IN 8 OZ OF WATER OR ANY BEVERAGE Cyclobenzaprine HCl (Cyclobenzaprine HCl) 10 Mg Tab 10 MG PO TID for 30 Days, #90 TAB Continued Medications: Aspirin (Aspirin Ec) 81 Mg Tab 81 MG PO HS Atorvastatin (Lipitor) 40 Mg Tab 40 MG PO HS, TAB Cetirizine (Zyrtec) 10 Mg Tab 10 MG PO HS, TAB Citalopram Hydrobromide (Celexa) 10 Mg Tab 10 MG PO HS, TAB Ergocalciferol (Vitamin D) 50,000 Interunit Cap 54196 INTER.UNIT PO WK TAKE THIS MEDICATION EVERY THURSDAY Lisinopril (Zestril) 5 Mg Tab 5 MG PO HS, TAB Metoprolol Succinate (Toprol Xl) 25 Mg Tabcr 50 MG PO QAM, TAB Omeprazole (Prilosec) 20 Mg Capcr 20 MG PO HS, CAP Potassium Chloride Microencaps (Potassium Chloride Er) 10 Meq Tab 10 MEQ PO QAM, TAB Raloxifene Hcl (Evista) 60 Mg Tab 60 MG PO QAM, TAB Admission Information HPI (per Admitting provider): DATE OF ADMISSION: 09/28/2016 PRIMARY CARE PHYSICIAN: Dr. Mcnulty CHIEF COMPLAINT: Sudden onset spasm and pain in the lower lumbar area, radiation to left leg. 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 Apparently, she complains to have occasional spasm involving the back muscles. This morning, she was fine as she went for shopping. She went to different places. She came home in the evening and suddenly she got these spasm and pain involving the left lower lumbar area and the pain went down to the left leg, up to the ankle. She could not move her leg and then she was brought into the Emergency Room for further evaluation. She denies to have any trauma or any fall recently. She does not have any problem with urine and/or bowel habits. In the ER, she was in pain. She could not elevate the leg and apparent tests including x-ray of the lumbar spine did show age-indeterminate superior endplate L1 compression deformity. Labs and imaging studies are unremarkable otherwise, but given the acuteness of the pain and radiculopathy type of pain, she was admitted to medical floor for physical therapy and also further imaging studies of the spine. PAST MEDICAL HISTORY: Significant for atrial fibrillation not on any anticoagulation, hypertension, hyperlipidemia, history of osteoporosis, history of breast cancer status post surgery and history of malignant melanoma of the trunk. PAST SURGICAL HISTORY: Significant for cardiac catheterization in 2005, minimal luminal irregularities, excision of the right breast, carcinoma in situ, adenoid and tonsillectomy as a child, appendectomy and hysterectomy. FAMILY HISTORY: Mother had diabetes. Father had heart disorder. Mother had high blood pressure as well. Both of them are . SOCIAL HISTORY: She is single. She has one child. She lives alone. She does not smoke and she drinks occasionally. Today she had a drink at about 3:00 p.m. REVIEW OF SYSTEMS: CENTRAL NERVOUS SYSTEM: No headache, no blurred vision, no numbness or tingling in the extremities. RESPIRATORY: No cough or phlegm. She did have slight shortness of breath. No fever, chills or rigors. CARDIOVASCULAR: No chest pain, palpitations. GASTROINTESTINAL: No abdominal pain, nausea, vomiting. GENITOURINARY: No problem with urine and/or bowel habits. MUSCULOSKELETAL: Does have pain and spasm involving the left lower lumbar area. No acute arthritis in any joint. HEENT: Unremarkable. GENERAL EXAMINATION: No rash. ALLERGIES: TO AUGMENTIN, IBUPROFEN, NAPROXEN, NITROFURANTOIN AND POLLEN. MEDICATIONS: She has been on aspirin 81 mg daily, Lipitor 40 mg daily, Vasotec 10 mg at night, Celexa 10 mg at night, vitamin D 50,000 units every week, lisinopril 5 mg daily, Toprol-XL 25 mg tablet 50 mg in the morning, potassium chloride 10 mEq, Evista 60 mg daily, omeprazole 20 mg daily. PHYSICAL EXAMINATION: GENERAL: On examination in the Emergency Room, she was still having some localized pain at the lower back, but the pain was not radiating down to the leg at rest. HEENT: Unremarkable. NECK: Supple. No JVD, no bruits. VITAL SIGNS: Temperature 36.7, pulse is 82, blood pressure 138/83, saturation 100% on room air. CHEST: Clear to auscultate bilaterally. HEART: S1, S2, regular, no murmur. ABDOMEN: Soft, benign, nontender, no organomegaly. Bowel sounds present. EXTREMITIES: Negative for any edema. MUSCULOSKELETAL: Did show localized tenderness involving the lower lumbar area on the left side and straight leg rising on the left side was positive with pain radiating down to the left leg. DTRs 2+ in both sides, no sensory impairment. CENTRAL NERVOUS SYSTEM: Alert, awake and oriented x3. LABORATORY DATA: Noted today; white count was 13.59, H\T\H 13.0/37.7, platelet was 317. Sodium 142, potassium 3.8, chloride 104, carbon dioxide 22, BUN 8, creatinine 0.67. LFTs unremarkable. UA examination; unremarkable. Toxicology; alcohol level of 175. Chest x-ray; pending. EKG; pending. Lumbar spine x-ray; did show mild multilevel degenerative changes, mild age-indeterminate superior L1 endplate compression deformity. No subluxation IMPRESSION AND PLAN: 1. Acute lower lumbar pain with spasm. Clinically has radiculopathy, but no significant symptom associated with it. We will admit the patient to medical- surgical floor, give pain medication and antispasmodic medication, get MRI of the lumbar spine to rule out any compression on the nerve endings. We will get physical therapy evaluation and orthopedic consultation depending on the MRI findings. 2. Atrial fibrillation, rate seems to be under control. Get an EKG. Continue current medications. The patient has not been taking any anticoagulation, only on aspirin. 3. Hypertension. Blood pressure seems to be controlled at this time. Continue current medication. 4. History of cancer of breast and history of melanoma. Has been on Evista for breast cancer. To rule out any compression fracture secondary to metastases, but doubt at this time. 5. Hyperlipidemia. Continue current medication. 6. Gastrointestinal prophylaxis with Proton Pump Inhibitor. 7. Deep venous thrombosis prophylaxis with subQ heparin. 8. Code status. She will be full code. In my clinical judgment, the beneficiary meets criteria as per CMS for 2 midnights stay in the hospital. Hospital Course Acute lower lumbar pain radiculopathy/L1 fracture : 10/01 Patient may be discharged home today Outpatient follow-up with Dr. Kaur in 2 weeks Will be discharged with prescription for percocet and walker TLSO brace no prior hx of Trauma or fall Xray of lumber spine : MRI of lumber spine shows : 1. There is a mild acute to subacute compression fracture of L1. 2. No additional bony abnormality is seen throughout the lumbar spine. 3. There are minimally retropulsed fragments from the L1 fracture eccentric to the right. Additionally, there is likely a small volume of epidural hemorrhage eccentric to the right posterior to the L1 vertebral body. This causes minimal mass effect and may impinge on the transiting right-sided nerve roots. 4. No large disc herniation is seen. Multilevel lumbosacral spondylosis is detailed above. appreciate input form Dr Kaur conservative management TLSO lumber brace placed , pt mentions of improvement of back pain and muscle spasm pt feels much improvement of her back pain after the brace placement OOB as tolerated , pt will benefit with rolling walker -script given appreciate payroll manager input RW will be delivered to patient room prior to discharge PT/OT armanial requested back pain was much better yesterday started to experience worsening of back pain today after going to bathroom this AM wants to stay overnight to se her symptom improves will be discharged home tomorrow out pt follow up with Dr Kaur in 2 weeks will have Xray of thoraco lumber spine in 2 weeks pain control with PO Percocet PRN pt is counselled for bowel regimen MILD LEUKOCYTOSIS : possible due to stress /dehydration no sign of infection blood cell count improving follow CBC Atrial fibrillation rate and rhythm controlled on beta ramy follows with Cardiology Dr Mcdaniel at [facility] cardiology clinic not on chronic anticoagulation -due to low risk for CVA cont on Low dose Aspirin 81 mg daily Hypertension. BP stable cont Lopressor /Lisinopril Hyperlipidemia. cont statin Code status.Full code. DVT PROPHYLAXIS scd and teds avoid pharmacological anticoagulation due to evidence of small epidural Hge DISPOSITION Discharge home tomorrow 10/01/16 Total time spent on discharge = 35 minutes This includes examination of the patient, discharge planning, medication reconciliation, and communication with other providers. Discharge Instructions HOSPITAL FOLLOW UP WITH DR MCNULTY on 10/02/2016 @ 11:10 AM [facility] ORTHOPEDICS FOLLOW UP WITH DR KAUR IN 2 WEEKS, PLEASE CALL OFFICE FOR APPOINTMENT DRINK PLENTY OF WATER PAIN MEDICATIONS CAN CAUSE SEVERE CONSTIPATION TAKE COLACE OR MIRALAX ( OVER THE COUNTER NEEDED ) TO PREVENT CONSTIPATION
--- NOTE | 2016-10-03 06:49 | EDITING REQUIRED CODING QUERY ---
CODING QUERY To promote full compliance with coding requirements relating to patient care, provider participation is requested in all cases of pre coder uncertainty. Please assist us with the question(s) below: Coding Question(s): Dr. Reyes, Please clarify the nature of the T1 compression fracture: ( X ) Nontraumatic ( X ) Fatigue or stress fracture ( ) Pathological fracture ( ) Due to bone metastasis ( ) osteoporosis ( ) other disease, please specify ( ) Other, please specify ( ) Traumatic Please document the trauma, if known: ( ) Other, please explain Physician's Response(s): Thank you for your time, RY Baird, RN TRANSITIONAL
== END 2016-10-01 13:58 | disposition home health service (06) | DRG 551 ==
LOC: ENRESERVDT → ENRESERVTM → EDBD 19:42 → C.EDA 19:44 → C.MSW 09-28 00:38 → OBSVTOIN 09-28 16:03
PROVIDERS: ADMIT Internal Medicine; ATTEND Family Medicine
DX: M54.16 Radiculopathy, lumbar region (principal); G95.19 Other vascular myelopathies; M48.44XA Fatigue fracture of vertebra, thoracic region, initial encounter for fracture; M62.838 Other muscle spasm; D72.829 Elevated white blood cell count, unspecified; E86.0 Dehydration; T49.2X1A Poisoning by local astringents and local detergents, accidental (unintentional), initial encounter; L23.5 Allergic contact dermatitis due to other chemical products; Y92.230 Patient room in hospital as the place of occurrence of the external cause; I48.91 Unspecified atrial fibrillation; I10 Essential (primary) hypertension; E78.5 Hyperlipidemia, unspecified; M81.0 Age-related osteoporosis without current pathological fracture; Z85.3 Personal history of malignant neoplasm of breast; Z85.820 Personal history of malignant melanoma of skin; Z79.82 Long term (current) use of aspirin; Z79.810 Long term (current) use of selective estrogen receptor modulators (SERMs); Z79.891 Long term (current) use of opiate analgesic; Z79.899 Other long term (current) drug therapy

== ENCOUNTER → 2016-11-24 | Outpatient (CLI) | payer BC ==
[~2016-11-24] MED LIST changes: -ATOR-22 PO; +CETI10TA84 PO; +DOCU-94 PO; -ELQ25 PO; +FLX10 PO; +LISI-729 PO; +LPT/40 PO; +METO25TA3 PO; +MRLP17X PO; +OXYC-57 PO; -POTA-331 PO; +POTA10TA32 PO; +RALO60TA12 PO; -TPRSR25 PO; +[UNRECOGNIZED DRUG - CODE]
--- NOTE | 2016-11-24 12:03 | DIAGNOSTIC IMAGING REPORT ---
LUMBAR SPINE MRI HISTORY: Pain LUMBAR PAIN TECHNIQUE: Multiplanar multisequence MRI of the lumbar spine was performed without the use of contrast. COMPARISON: 09/28/2016 FINDINGS: For the purpose of the report the L5-S1 disc space will be located on axial image 27 of 30. Findings of a slight increase in bone marrow edema of the L1 vertebral body. This may indicate a slight increase in compression compared to the prior study. There is been no change in the posterior extradural components. There is no change in bony alignment. Signal characteristics otherwise are unremarkable throughout. There are findings of mild degenerative disc changes throughout. T12/L1: Posterior extradural defect appearing to consist primarily of posterior osteophytic change combined with bulging disc components. This is generally similar compared to the prior study. No major compromise of the neural foramina. L1-L2: Minimal broad-based disc bulge. No significant impact upon the thecal sac. L2-L3: Mild broad-based bulging disc. Mild osteophytic narrowing left neuroforamina. L3-L4: Mild broad-based bulging disc. Mild osteophytic narrowing of the neuroforamina bilaterally. L4-L5: Mild broad-based bulging disc with mild impact anterior thecal sac. Mild osteophytic narrowing of the neuroforamina bilaterally L5-S1: No significant central canal or neural foraminal narrowing. IMPRESSION: 1. Subtle increase in compression of L1 vertebral body with subsequent subtle increase in reactive bone marrow edema of the L1 substance.. 2. Posterior extradural defect at T12-L1 level is similar as compared to the prior study with mild impact right anterior aspect thecal sac. 3. All remaining lumbar levels are unremarkable for mild disc bulges with no evidence for major disc herniation or significant component of spinal stenosis Electronically signed by: Cricket Staton M.D. 11/24/2016 12:02 PM Dictated Date/Time: 11/24/2016 11:48 AM
== END | disposition home or self-care (01) ==
LOC: C.MRIBC 10-28 15:14
PROVIDERS: ATTEND Orthopaedic Surgery Orthopaedic Surgery of the Spine
DX: M54.5 Low back pain (principal); R93.7 Abnormal findings on diagnostic imaging of other parts of musculoskeletal system

== ENCOUNTER 2017-09-14 01:36 | Emergency (ER) | payer BC, OTHER ==
[~2017-09-14] VITALS: Ht 175.3 cm; Wt 73.4 kg
[~2017-09-14 01:36] MED LIST changes: -DOCU-94 PO; -METO25TA3 PO; +METO25TA4 PO; -OXYC-57 PO; -RALO60TA12 PO; +RALO60TA30 PO
[2017-09-14 01:41] VITALS: TEMP 36.7; Ht 175.3 cm; Wt 73.4 kg
[2017-09-14 02:26] LABS: HEMOGLOBIN 11.9 g/dL (12.0-16.0); MEAN CELL VOLUME 105.6 fL (80-100); MEAN CORPUSCULAR HEMOGLOBIN 34.9 pg (25-34); MEAN CORPUSCULAR HGB CONC 33.1 g/dl (32-36); MEAN PLATELET VOLUME 9.4 fL (7.4-10.4); PLATELET COUNT 342 K/uL (130-400); RED CELL DISTRIBUTION WIDTH CV 12.7 % (11.5-14.5); RED CELL DISTRIBUTION WIDTH SD 49.1 fL (36.4-46.3); WHITE BLOOD COUNT 9.87 K/uL (4.8-10.8)
[2017-09-14 02:32] VITALS: O2SAT 93
[2017-09-14 02:33] LABS: ALBUMIN 3.8 gm/dl (3.4-5.0); CALCIUM 8.5 mg/dl (8.5-10.1); CREATININE 0.66 mg/dl (0.60-1.20)
[2017-09-14 02:38] LABS: CKMB 1.3 ng/ml (0.5-3.6); TOTAL PROTEIN 7.9 gm/dl (6.4-8.2)
[2017-09-14] MEDS ORDERED: FAMOTIDINE 20MG/5ML IV PUSH IV STA (02:46)
[2017-09-14] MEDS ORDERED: SODIUM CHLORIDE 0.9% 500ML 500 ML IV STA (02:46)
[2017-09-14] MEDS ORDERED: ASPIRIN/ALUM/MAGNES/CAL CARB 325 MG TAB PO STA (02:46)
[2017-09-14 02:47] LABS: PTT PATIENT 22.9 SECONDS (21.0-31.0)
[2017-09-14] MEDS ORDERED: NITROGLYCERIN OINT 2% 1GM PACKET EXT ONE (03:00)
[2017-09-14] MEDS ORDERED: SODIUM CHLORIDE 0.9% 1000ML 1,000 ML IV STA (03:55)
[2017-09-14] MEDS ORDERED: OPTIRAY 320 IV PRN (04:15)
--- NOTE | 2017-09-14 06:34 | EMERGENCY ROOM VISIT NOTE ---
History Report prepared by Chuck: Kiet Graves Under the Supervision of: Dr. Nadia Gilliam D.O. First contact with patient: 02:19 Chief Complaint: CHEST PAIN Stated Complaint: CHEST PAIN Nursing Triage Summary: Pt presents als for evaluation of chest pain starting at approx 2000 yesterday. Pain started after eating at the [employer]. Pain worse with movement. History of Present Illness The patient is a 61 year old female who presents to the Emergency Room by EMS with complaints of constant left chest pain beginning 4.5 hours ago. She also complains of left upper abdominal pain, back pain, left arm pain, diarrhea, and SOB. She states that her pain began after dinner at the [employer]. The patient had salad, and champagne for dinner. Pt states the then went home. She states that she began "foaming at the mouth" which she attributes to an episode of acid reflux so she took some medicine and laid down for a litte and then felt better. She states that she was able to eat the rest of her dinner later. It was after that she began developing chest pain that did not go away. She denies any neck pain, fevers, chills, cough, bloody stool, abdominal bloating, leg swelling, or cold-like symptoms. The patient has a history of paroxysmal A- fib. Her most recent episode of A-fib was about a year ago. She is on aspirin daily, but does not believe she is on any other blood thinning medication. The patient's most recent stress test was one year ago and was normal. Source of History: patient Onset: 4.5 hours ago Position: chest (left) Timing: constant Associated Symptoms: + SOB, + abdominal pain (left upper), + back pain, + diarrhea, No cough, No neck pain, No hematochezia Note: Additional symptoms: left arm pain. She denies abdominal bloating, leg swelling , or cold-like symptoms. Review of Systems See HPI for pertinent positives & negatives. A total of 10 systems reviewed and were otherwise negative. Past Medical & Surgical Medical Problems: (1) Back pain (2) HTN (hypertension) (3) Hyperlipidemia (4) Melanoma (5) Paroxysmal atrial fibrillation (6) UTI (urinary tract infection) Surgical Problems: (1) H/O adenoidectomy (2) S/P appendectomy (3) S/P partial hysterectomy Family History Hypertension Social History Smoking Status: Former Smoker Alcohol Use: none Marital Status: single Housing Status: lives alone Occupation Status: retired Current/Historical Medications Scheduled Aspirin (Aspirin Ec), 81 MG PO HS Cetirizine (Zyrtec), 10 MG PO HS Citalopram Hydrobromide (Celexa), 10 MG PO HS Cyanocobalamin (Vitamin B12), 2,000 MCG PO QAM Ergocalciferol (Vitamin D 92567 Unit), 50,000 UNIT PO WK Ezetimibe (Zetia), 10 MG PO QAM Fish Oil (Corry-3), 2 CAP PO BID Lisinopril (Zestril), 5 MG PO HS Metoprolol Succinate (Toprol Xl), 50 MG PO QAM Omeprazole (Prilosec), 20 MG PO HS Potassium Chloride Microencaps (Potassium Chloride Er), 10 MEQ PO QAM Raloxifene Hcl (Evista), 60 MG PO QAM Trazodone Hcl (Trazodone), 50 MG PO HS Valacyclovir Hcl (Valtrex), 500 MG PO QAM Scheduled PRN Oxycodone/Acetaminophen 5MG/325MG (Percocet 5MG/325MG), 1 TAB PO Q6H PRN for Pain Allergies Coded Allergies: Naproxen (Verified Allergy, Severe, Hives and swelling of the throat, ) Ibuprofen (Verified Allergy, Intermediate, Hives, 09/14/17) POLLEN (Verified Allergy, Unknown, 09/14/17) Nitrofurantoin (Verified Adverse Reaction, Severe, HEPATITIS, 09/14/17) Clavulanic Acid (Unverified Adverse Reaction, Mild, NAUSEA = BetaLactomase inhibitors, 09/14/17) Physical Exam Vital Signs Date Time Temp Pulse Resp B/P (MAP) Pulse Ox O2 Delivery O2 Flow Rate FiO2 09/14/17 09:16 69 20 127/79 95 09/14/17 08:37 62 09/14/17 07:10 60 16 128/79 90 Room Air 09/14/17 06:18 60 18 143/90 95 Room Air 09/14/17 05:24 66 18 118/75 Room Air 09/14/17 05:13 64 09/14/17 04:06 67 18 119/70 95 Room Air 09/14/17 03:05 60 17 118/75 95 Room Air 09/14/17 02:32 93 09/14/17 02:32 93 Room Air 09/14/17 01:46 60 09/14/17 01:41 36.7 60 18 158/92 99 Room Air Physical Exam GENERAL: Smells of ETOH, alert, well appearing, well nourished, no distress, non -toxic EYE EXAM: normal conjunctiva, PERRL and EOM's grossly intact OROPHARYNX: no exudate, no erythema, lips, buccal mucosa, and tongue normal and mucous membranes are moist NECK: supple, no nuchal rigidity, no adenopathy, non-tender LUNGS: Clear to auscultation. Normal chest wall mechanics HEART: no murmurs, S1 normal and S2 normal CHEST: Mild reproducible pain to the left superior chest wall. No crepitus. Equal chest rise and fall. No ecchymosis. ABDOMEN: abdomen soft, non-tender, normo-active bowel sounds, no masses, no rebound or guarding. No ecchymosis or evidence of trauma. Pelvis stable. BACK: Back is symmetrical on inspection and there is no deformity, no midline tenderness, no CVA tenderness. No evidence of trauma. SKIN: no rashes and no bruising UPPER EXTREMITIES: upper extremities are grossly normal. Normal range of motion , no obvious deformities, normal pulses. LOWER EXTREMITIES: No pitting edema. Normal range of motion, no obvious deformities, normal pulses. NEURO EXAM: Normal sensorium, cranial nerves II-XII grossly intact, normal speech, no gross weakness of arms, no gross weakness of legs. Medical Decision & Procedures ER Provider Diagnostic Interpretation: One View Chest X-ray interpreted by me: No cardiomegaly. No effusion. No wide mediastinum. No focal infiltrate. CT results per statrad and my review. CT CHEST With Contrast: No evidence of pulmonary embolism. Lateral left third through seventh and posterolateral left ninth rib fractures, some of which are minimally displaced. Small left hydropneumothorax. No mediastinal shift. Small groundglass opacity in the peripheral lingual and left lower lobe, atelectasis versus pulmonary contusion. No thoracic aortic aneurysm or dissection. Moderate sized hiatal hernia. Mild anterior compression deformity of T11, age indeterminate. Correlate for focal tenderness. CT ABDOMEN & PELVIS With Contrast: No free fluid. No free air. The bowel is normal caliber. Appendix is not seen. No right lower quadrant inflammatory changes to suggest appendicitis. Liver, gallbladder, pancreas, spleen, kidneys, and adrenals are unremarkable. Uterus is surgically absent. [~ rep ct add3]] CT SCAN OF THE BRAIN WITHOUT IV CONTRAST CLINICAL HISTORY: Trauma. Intoxication. COMPARISON STUDY: CT of the brain dated 09/05/2014. TECHNIQUE: Unenhanced axial CT scan of the brain is performed from the vertex to the skull base. A dose lowering technique was utilized adhering to the principles of ALARA. Residual contrast is present from the recently performed chest and abdominal CT scans. CT DOSE: 1029.14 mGy.cm FINDINGS: Brain parenchyma: There are age-related involutional changes noting mild subcortical and periventricular microangiopathic change. There is no hemorrhage, mass effect, or evidence of acute territorial ischemia by CT criteria. Lebron-white matter is preserved. No extra-axial fluid collection is seen. Ventricles, sulci, cisterns: Prominent secondary to involutional change. Intracranial vasculature: There is mild atherosclerotic calcification of the cavernous carotid arteries. Calvarium: There is no depressed calvarial fracture. Sinuses and mastoids: The visualized paranasal sinuses are clear. The mastoid air cells are well pneumatized. Orbits: The bony orbits are grossly intact. IMPRESSION: There is no hemorrhage, mass effect, or evidence of acute territorial ischemia by CT criteria. Electronically signed by: Scooby Mitchell M.D. 09/14/2017 7:32 AM Dictated Date/Time: 09/14/2017 7:29 AM [~ rep ct add3]] CT SCAN OF THE CERVICAL SPINE CLINICAL HISTORY: Trauma. Intoxication. COMPARISON STUDY: No priors. TECHNIQUE: CT scan of the cervical spine is performed from the skull base to the upper thoracic spine. Images are reviewed in the axial, sagittal, and coronal planes. IV contrast was not administered for this examination. A dose lowering technique was utilized adhering to the principles of ALARA. FINDINGS: Skeletal structures: The skeletal structures are osteopenic. There is no evidence of fracture or subluxation involving the cervical spine. There is incomplete bony fusion of the posterior ring of C1, likely on a congenital basis. Vertebral body height is maintained. Mild retrolisthesis is seen at C4-C5 and C5-C6. Alignment is otherwise preserved. Anterior osteophytes are seen throughout. Advanced degenerative endplate sclerosis is noted at C4-C5 and C5-C6. There is straightening of the cervical lordosis with reversal centered at C4. The odontoid process and lateral masses are intact. The atlantoaxial articulation is preserved noting mild productive degenerative change. The spinous processes appear intact. There is mild to moderate multilevel cervical spondylosis. Uncovertebral and facet arthropathy contribute to neural foraminal narrowing at several levels. Intervertebral discs: There is advanced disc space narrowing seen at C4-C5 and C5-C6. Moderate disc space narrowing is seen at C6-C7. Central canal: Widely patent. Soft tissues: The prevertebral and paraspinous soft tissues are within normal limits. There is atherosclerotic calcification of the carotid bulbs. A calcified nodule is noted in the right lobe of the thyroid. Calvarium: The visualized calvarium at the skull base appears intact. Brain parenchyma: Partially visualized brain parenchyma the skull base is within normal limits. Sinuses and mastoids: The visualized paranasal sinuses are clear. The mastoid air cells are well pneumatized. Lung apices: There is a trace left apical pneumothorax. Apical scarring is observed. IMPRESSION: 1. Trace left apical pneumothorax. 2. There is no evidence of fracture or subluxation involving the cervical spine. 3. Osteopenia and spondylotic change as above. Electronically signed by: Scooby Mitchell M.D. 09/14/2017 7:17 AM Dictated Date/Time: 09/14/2017 7:12 AM Laboratory Results 09/14/17 01:45 09/14/17 01:45 Test 09/14/17 01:45 09/14/17 02:30 09/14/17 02:43 09/14/17 02:55 Red Blood Count 3.41 M/uL (4.2-5.4) Mean Corpuscular Volume 105.6 fL (80-100) Mean Corpuscular Hemoglobin 34.9 pg (25-34) Mean Corpuscular Hemoglobin Concent 33.1 g/dl (32-36) RDW Standard Deviation 49.1 fL (36.4-46.3) RDW Coefficient of Variation 12.7 % (11.5-14.5) Mean Platelet Volume 9.4 fL (7.4-10.4) Anion Gap 10.0 mmol/L (3-11) Est Creatinine Clear Calc Drug Dose 92.4 ml/min Estimated GFR () 109.7 Estimated GFR (Non- 94.7 BUN/Creatinine Ratio 14.9 (10-20) Calcium Level 8.5 mg/dl (8.5-10.1) Total Bilirubin 0.2 mg/dl (0.2-1) Aspartate Amino Transf (AST/SGOT) 94 U/L (15-37) Alanine Aminotransferase (ALT/SGPT) 50 U/L (12-78) Alkaline Phosphatase 69 U/L (45-117) Total Creatine Kinase 119 U/L (26-192) Creatine Kinase MB 1.3 ng/ml (0.5-3.6) Creatine Kinase MB Ratio 1.1 (0-3.0) Total Protein 7.9 gm/dl (6.4-8.2) Albumin 3.8 gm/dl (3.4-5.0) Globulin 4.1 gm/dl (2.5-4.0) Albumin/Globulin Ratio 0.9 (0.9-2) Prothrombin Time 10.1 SECONDS (9.0-12.0) Prothromb Time International Ratio 1.0 (0.9-1.1) Activated Partial Thromboplast Time 22.9 SECONDS (21.0-31.0) Partial Thromboplastin Ratio 0.9 D-Dimer 1650 ug/L FEU (0-500) Bedside Troponin I < 0.030 ng/ml (0-0.045) Ethyl Alcohol mg/dL 290.0 mg/dl (0-3) Laboratory results per my review. Medications Administered Medications (Trade) Dose Ordered Sig/Jerardo Route Start Time Stop Time Status Last Admin Dose Admin Sodium Chloride 500 ml @ 999 mls/hr Q31M STAT IV 09/14/17 02:46 09/14/17 03:16 DC 09/14/17 03:04 999 MLS/HR Famotidine (Pepcid 20mg Iv Push) 20 mg NOW STAT IV 09/14/17 02:46 09/14/17 02:49 DC 09/14/17 03:04 20 MG Aspirin/Aluminum/ Magnesium/Ca Carb (Ascriptin Tab) 325 mg NOW STAT PO 09/14/17 02:46 09/14/17 02:49 DC 09/14/17 03:24 325 MG Nitroglycerin (Nitroglycerin 2% Oint) 1 inch NOW ONCE EXT 09/14/17 03:00 09/14/17 03:01 DC 09/14/17 03:05 1 INCH Sodium Chloride 1,000 ml @ 999 mls/hr Q1H1M STAT IV 09/14/17 03:55 09/14/17 04:55 DC 09/14/17 03:55 999 MLS/HR Acetaminophen (Tylenol Tab) 1,000 mg STK-MED ONCE PO 09/14/17 09:13 09/14/17 09:14 DC 09/14/17 09:16 1,000 MG ECG Indication: chest pain Rate (beats per minute): 67 Rhythm: normal sinus Findings: 1st degree AV block, no acute ischemic change, other (Normal QRS/ QTC. Baseline artifact. ) ED Course 0226: The patient was evaluated in room C10. A complete history and physical exam was performed. 0543: I spoke with the patient. I examined her left chest wall. She has no tenderness other than at the costal margin or crepitus. 0550: I read the patient her CT report and discussed the need for transfer to an acute care facility. The patient refuses transfer, and would like to go home. She would like to leave AMA. I informed her that she cannot leave the department AMA unless she is clinically sober. 0730: The patient was signed out to Dr. Plasencia at the change of shift pending clinical sobriety. 0815: Re-assessed pt. VS stable. No hypoxia. Still no recollection of trauma. Still would like to go home. Medical Decision Differential diagnosis: Etiologies such as cardiac ischemia, aortic dissection, pulmonary embolism, pneumonia, pneumothorax, musculoskeletal, infections, pericarditis, myocarditis , esophageal rupture, gastrointestinal, as well as others were entertained. Patient well-appearing here despite injuries found. Patient denied multiple times any trauma this evening, however no other recent explanation to explain findings on CAT scan. No additional trauma noted other than that in the thoracic area. I do not suspect occult cardiac contusion or evolving cardiac tamponade, no evidence of additional vascular trauma. Patient with stable vital signs throughout, never hypoxic, never complained of shortness of breath, did not require supple oxygen. Discussed with patient transferred a trauma center for close observation giving since the findings, usual treatment of rib fractures. Patient not initially given any additional pain medication here due to level of intoxication patient appeared be resting comfortably. Patient takes baby aspirin daily, no additional anticoagulation. Discussed with patient need for close follow-up with family doctor, possible complications resulting from rib fractures and pulmonary contusion, she verbalized understanding of this. Discussed risks versus benefits of transfer and observation, and she refused. Discussed with her that she would need to be clinically sober noted to sign AMA paperwork. Patient upset about this, she verbalized understanding. While I advised her this was not optimal treatment, it did give us additional observation time in a monitored setting. Patient signed out the morning doctor awaiting sobriety repeat evaluation. Medication Reconcilliation Current Medication List: was personally reviewed by me Blood Pressure Screening Patient's blood pressure: Normal blood pressure Blood pressure disposition: Did not require urgent referral Impression Primary Impression: Chest pain Additional Impressions: Alcohol intoxication Multiple rib fractures Pulmonary contusion Hydropneumothorax Scribe Attestation The scribe's documentation has been prepared under my direction and personally reviewed by me in its entirety. I confirm that the note above accurately reflects all work, treatment, procedures, and medical decision making performed by me. Departure Information Dispostion Still a Patient (Signed out to Dr. Plasencia ) Prescriptions Oxycodone/Acetaminophen 5MG/325MG (PERCOCET 5MG/325MG) Tab 1 TAB PO Q6H Y for Pain, #20 TAB Prov: Jace Plasencia D.O. 09/14/17 Referrals Homer Williamson III, M.D. (PCP) Patient Instructions My [facility] Problem Qualifiers Primary Impression: Chest pain Chest pain type: unspecified Qualified Codes: R07.9 - Chest pain, unspecified Additional Impressions: Alcohol intoxication Complication of substance-induced condition: uncomplicated Qualified Codes: F10.920 - Alcohol use, unspecified with intoxication, uncomplicated Multiple rib fractures Encounter type: initial encounter Fracture type: closed Laterality: left Qualified Codes: S22.42XA - Multiple fractures of ribs, left side, initial encounter for closed fracture Pulmonary contusion Encounter type: initial encounter Laterality: left Qualified Codes: S27.321A - Contusion of lung, unilateral, initial encounter
[2017-09-14] MEDS ORDERED: OMEG10007 PO (07:00)
[2017-09-14] MEDS ORDERED: CYAN100020 PO (07:00)
[2017-09-14] MEDS ORDERED: TRAZ50TA35 PO (07:00)
[2017-09-14] MEDS ORDERED: VALA500T41 PO (07:01)
[2017-09-14] MEDS ORDERED: EZET10TA63 PO (07:01)
[2017-09-14] MEDS ORDERED: ERGO500037 PO (07:02)
--- NOTE | 2017-09-14 07:19 | DIAGNOSTIC IMAGING REPORT ---
CT SCAN OF THE CERVICAL SPINE CLINICAL HISTORY: Trauma. Intoxication. COMPARISON STUDY: No priors. TECHNIQUE: CT scan of the cervical spine is performed from the skull base to the upper thoracic spine. Images are reviewed in the axial, sagittal, and coronal planes. IV contrast was not administered for this examination. A dose lowering technique was utilized adhering to the principles of ALARA. FINDINGS: Skeletal structures: The skeletal structures are osteopenic. There is no evidence of fracture or subluxation involving the cervical spine. There is incomplete bony fusion of the posterior ring of C1, likely on a congenital basis. Vertebral body height is maintained. Mild retrolisthesis is seen at C4-C5 and C5-C6. Alignment is otherwise preserved. Anterior osteophytes are seen throughout. Advanced degenerative endplate sclerosis is noted at C4-C5 and C5-C6. There is straightening of the cervical lordosis with reversal centered at C4. The odontoid process and lateral masses are intact. The atlantoaxial articulation is preserved noting mild productive degenerative change. The spinous processes appear intact. There is mild to moderate multilevel cervical spondylosis. Uncovertebral and facet arthropathy contribute to neural foraminal narrowing at several levels. Intervertebral discs: There is advanced disc space narrowing seen at C4-C5 and C5-C6. Moderate disc space narrowing is seen at C6-C7. Central canal: Widely patent. Soft tissues: The prevertebral and paraspinous soft tissues are within normal limits. There is atherosclerotic calcification of the carotid bulbs. A calcified nodule is noted in the right lobe of the thyroid. Calvarium: The visualized calvarium at the skull base appears intact. Brain parenchyma: Partially visualized brain parenchyma the skull base is within normal limits. Sinuses and mastoids: The visualized paranasal sinuses are clear. The mastoid air cells are well pneumatized. Lung apices: There is a trace left apical pneumothorax. Apical scarring is observed. IMPRESSION: 1. Trace left apical pneumothorax. 2. There is no evidence of fracture or subluxation involving the cervical spine. 3. Osteopenia and spondylotic change as above. Electronically signed by: Scooby Mitchell M.D. 09/14/2017 7:17 AM Dictated Date/Time: 09/14/2017 7:12 AM
--- NOTE | 2017-09-14 07:30 | DIAGNOSTIC IMAGING REPORT ---
CT ANGIOGRAM OF THE CHEST CLINICAL HISTORY: Trauma. Intoxication. Left-sided chest pain. COMPARISON STUDY: Chest x-ray dated 09/14/2007. TECHNIQUE: Following the IV administration of 93 cc of Optiray 320, CT angiogram of the chest was performed from the upper abdomen to the thoracic inlet utilizing the pulmonary embolus protocol. Images are reviewed in the axial, sagittal, and coronal planes. 3-D MIPS images are created and assessed. IV contrast was administered without complication. A dose lowering technique was utilized adhering to the principles of ALARA. FINDINGS: Thyroid: Imaged portions of the thyroid gland are normal in size and attenuation. A calcified nodule is seen in the right thyroid lobe. Thoracic aorta: The thoracic aorta is normal in caliber and demonstrates standard 3-vessel arch anatomy. No dissection is seen. Pulmonary vasculature: The pulmonary trunk is normal in caliber. There are no filling defects identified in main, lobar, or segmental pulmonary branches to suggest pulmonary embolus. Heart: The heart is top normal in size and without pericardial effusion. Lungs and pleural spaces: There is trace left hemopneumothorax. Bibasilar airspace opacities likely represent atelectasis, left greater than right. Mild apical scarring is observed. The trachea and central airways are clear. A fat-containing Bochdalek hernia is seen at the left lung base. There is a 2 cm groundglass opacity in the lingula seen on image #94. Mediastinum: There is no mediastinal hematoma or lymphadenopathy. Silvia: Clear. Axillae: There is no axillary lymphadenopathy. Upper abdomen: There is a large hiatal hernia. Partially visualized upper abdominal viscera is within normal limits. Skeletal structures: The skeletal structures are osteopenic. No lytic or blastic bony lesions are seen. There is a mild and age indeterminant but suspected acute superior endplate compression deformity of T11. No retropulsed fragments are identified. There are acute left lateral 2nd through 7th rib fractures. The majority of these are slightly distracted. There is a nondistracted left posterior 9th rib fracture. IMPRESSION: 1. There is no evidence of pulmonary embolus in the main, lobar, or segmental pulmonary arteries. 2. There are acute left lateral 2nd through 7th rib fractures. The majority of these are slightly distracted. There is also a nondistracted left posterior 9th rib fracture. 3. There is trace left hemopneumothorax. 4. The right lung appears clear. 5. There is a mild and age indeterminant superior endplate compression deformity of T11, possibly acute. Correlate clinically for point tenderness at this level. 6. There is a 2 cm groundglass focus in the subpleural lingula, likely representing a tiny contusion versus atelectasis. 7. Large hiatal hernia. 8. Additional findings as above. Electronically signed by: Scooby Mitchell M.D. 09/14/2017 7:29 AM Dictated Date/Time: 09/14/2017 7:19 AM
--- NOTE | 2017-09-14 07:34 | DIAGNOSTIC IMAGING REPORT ---
CT SCAN OF THE BRAIN WITHOUT IV CONTRAST CLINICAL HISTORY: Trauma. Intoxication. COMPARISON STUDY: CT of the brain dated 09/05/2014. TECHNIQUE: Unenhanced axial CT scan of the brain is performed from the vertex to the skull base. A dose lowering technique was utilized adhering to the principles of ALARA. Residual contrast is present from the recently performed chest and abdominal CT scans. CT DOSE: 1029.14 mGy.cm FINDINGS: Brain parenchyma: There are age-related involutional changes noting mild subcortical and periventricular microangiopathic change. There is no hemorrhage, mass effect, or evidence of acute territorial ischemia by CT criteria. Lebron-white matter is preserved. No extra-axial fluid collection is seen. Ventricles, sulci, cisterns: Prominent secondary to involutional change. Intracranial vasculature: There is mild atherosclerotic calcification of the cavernous carotid arteries. Calvarium: There is no depressed calvarial fracture. Sinuses and mastoids: The visualized paranasal sinuses are clear. The mastoid air cells are well pneumatized. Orbits: The bony orbits are grossly intact. IMPRESSION: There is no hemorrhage, mass effect, or evidence of acute territorial ischemia by CT criteria. Electronically signed by: Scooby Mitchell M.D. 09/14/2017 7:32 AM Dictated Date/Time: 09/14/2017 7:29 AM
[2017-09-14] MEDS ORDERED: ACETAMINOPHEN 500 MG TAB PO ONE (09:13)
--- NOTE | 2017-09-14 09:13 | DIAGNOSTIC IMAGING REPORT ---
CT SCAN OF THE ABDOMEN AND PELVIS WITH IV CONTRAST CLINICAL HISTORY: Left upper quadrant abdominal pain. Intoxication. Trauma. COMPARISON STUDY: Radiographs of the lumbar spine dated 09/27/2016. TECHNIQUE: Following the IV administration of 93 cc of Optiray 320, CT scan of the abdomen and pelvis is performed from the lung bases to the proximal femora. Images are reviewed in the axial, sagittal, and coronal planes. IV contrast was administered without complication. A dose lowering technique was utilized adhering to the principles of ALARA. CT DOSE: 836.34 mGy.cm FINDINGS: Lung bases: The heart is top normal in size and without pericardial effusion. Trace left hemopneumothorax at the left lung base. There is dependent atelectasis. A fat-containing Bochdalek hernia is noted at the left lung base. See report of chest CT performed concurrently for detailed intrathoracic findings. Liver: The contrast-enhanced liver is mildly enlarged measuring over 18 cm in length. The liver demonstrates diffusely diminished attenuation consistent with hepatic steatosis. There is no intrahepatic biliary ductal dilatation. The hepatic veins and portal veins are patent. Gallbladder: Unremarkable. Spleen: Normal in size and attenuation. Pancreas: Unremarkable. Adrenal glands: Unremarkable. Kidneys: The contrast enhanced kidneys are normal in size and without hydronephrosis. The kidneys enhance symmetrically. Abdominal vasculature: The abdominal aorta is normal in course and caliber noting mild to moderate atherosclerotic calcification. Stomach and bowel: There is a large hiatal hernia, with over half of the stomach located in the thoracic cavity. The duodenum is normal in configuration. No bowel obstruction is seen. There are scattered colonic diverticula without CT evidence of acute diverticulitis. The appendix is not identified. Peritoneum: There is no intraperitoneal free air or abdominal ascites. Lymphadenopathy: None. Pelvic viscera: The bladder is normal as visualized. The uterus is surgically absent. No adnexal lesion is seen. Skeletal structures: There is a nonobstructed left posterior ninth rib fracture. Left fifth through seventh rib fractures are identified and/or partial distracted. There is a mild superior end plate compression deformity of T11 and a mild to moderate superior endplate compression deformity of L1. Mild paravertebral edema is suggested around L1. Fragments are retropulsed at L1 by up to 7 mm. No lytic or blastic lesions are seen. There are healed right anterior rib fractures. There are healed left pubic ring fractures. A hemitransitional right lumbosacral segment is incidentally noted. There is mild lumbosacral spondylosis. IMPRESSION: 1. There are acute left-sided rib fractures as above with trace associated left-sided hemopneumothorax. See report of chest CT performed concurrently for detailed intrathoracic findings. 2. There are subacute to chronic compression fractures of T11 and L1. These were also seen on the 09/27/2016 radiographic examination. 3. There is no evidence of solid organ injury in the abdomen or pelvis. 4. Hepatomegaly and hepatic steatosis. 5. Large hiatal hernia. 6. Additional findings as above. Electronically signed by: Scooby Mitchell M.D. 09/14/2017 9:12 AM Dictated Date/Time: 09/14/2017 9:02 AM
[2017-09-14 09:16] VITALS: BP 127/79; PULSE 69; O2SAT 95
--- NOTE | 2017-09-14 09:47 | EMERGENCY ROOM VISIT NOTE ---
ED Visit Note This patient was signed out to me awaiting sobriety and ride. The patient is unsure what happened to her last night. She was intoxicated with an elevated alcohol level. The patient suffered acute rib fractures to the left side. Ribs 2 through 7 were broken with minimal displacement. There is also a nondisplaced contracted left posterior ninth rib fracture and trace left hemopneumothorax. There is no other significant injuries. The patient is comfortable. Her vital signs and been stable since she has been here. I did reassess the patient. The patient is in minimal pain. She was given Tylenol by mouth. She was told results the test. She feels comfortable going home. She was given an incentive spirometer to use and given instructions on how to use this to prevent pneumonia. She'll be discharged on Percocet. She'll be going home with a friend. She is told to follow-up with her PCP in 24-48 hours for recheck. She will return here for any worsening or new concerns.
[2017-09-14] MEDS ORDERED: OXYC-57 PO (09:49)
--- NOTE | 2017-09-14 11:19 | DIAGNOSTIC IMAGING REPORT ---
SINGLE VIEW CHEST CLINICAL HISTORY: Atypical chest pain. FINDINGS: An AP, portable, upright chest radiograph is compared to study dated 09/28/2016. The examination is degraded by portable technique and patient rotation. The heart is top normal for projection. The pulmonary vascular is noncongested. There is a small left pleural effusion with left basilar consolidation. Right lung appears clear. No pneumothorax is clearly seen. The skeletal structures are osteopenic. A left-sided rib fractures are suspected. IMPRESSION: 1. Left-sided rib fractures are suspected. Correlated with point tenderness. 2. There is a small left pleural effusion with left basilar consolidation. 3. The right lung appears clear. Electronically signed by: Scooby Mitchell M.D. 09/14/2017 11:18 AM Dictated Date/Time: 09/14/2017 11:17 AM
== END 2017-09-14 09:45 | disposition home or self-care (01) ==
LOC: EDBD 01:36 → C.EDC 01:39 → C.EDA 09:45
DX: R07.9 Chest pain, unspecified (principal); F10.920 Alcohol use, unspecified with intoxication, uncomplicated; S22.42XA Multiple fractures of ribs, left side, initial encounter for closed fracture; S27.321A Contusion of lung, unilateral, initial encounter; J94.8 Other specified pleural conditions; X58.XXXA Exposure to other specified factors, initial encounter; I48.0 Paroxysmal atrial fibrillation; I10 Essential (primary) hypertension; E78.5 Hyperlipidemia, unspecified; Z85.820 Personal history of malignant melanoma of skin; Z87.440 Personal history of urinary (tract) infections; Z87.891 Personal history of nicotine dependence; Z90.711 Acquired absence of uterus with remaining cervical stump; Z90.89 Acquired absence of other organs; Z82.49 Family history of ischemic heart disease and other diseases of the circulatory system; Z79.82 Long term (current) use of aspirin; Z79.899 Other long term (current) drug therapy

== ENCOUNTER 2021-08-01 05:20 | Observation (INO) ==
--- NOTE | 2021-07-30 14:48 | Anesthesiology Consultation ---
Date of Service July 30, 2021 Assessment & Plan (1) Encounter for pre-operative examination: - COVID screening: Per assessment on 07/26: Travel screen negative, no known COVID-19 positive contacts or current COVID-19 related symptoms. Patient vacci nated. Preop COVID test (07/29; [place]) was negative. - Cardiology office visit (06/18/21): "Stable cardiac symptoms. We reviewed her monitor results. No concerning arrhythmias.. Dizziness improved with reduction in metoprolol. Continue lower dose metoprolol 25 mg BID. New script provided so she does not have to cut 50 mg tablets. She will call if she has worsening symptoms or issues. Labs today requested by PCP are in process." F/U 6 months recommended. - Cardiology note (07/25/21): Aware of upcoming surgery- "Acceptable to hold Eliquis for 2 days. Resume post op. Would continue ASA 81 mg, metoprolol without interruption." Chart Review Chart Review: Acceptable Risk for Surgery (pending preop EKG) and Patient NOT seen in Pre Admission Testing History Surgery Operation Date: 08/01/21 09:35 Proposed Procedures p Open Reduction Internal Fixation Left Proximal Humerus - Jace Greer MD Height/Weight Height: 5 ft 8 in Weight: 63.503 kg Allergies Allergy/AdvReac Type Severity Reaction Status Date / Time naproxen Allergy Severe Hives and Verified 07/26/21 11:48 swelling of the throat ibuprofen Allergy Intermediate Hives Verified 07/26/21 11:48 pollen extracts Allergy Unknown Congested Verified 07/26/21 11:48 nitrofurantoin AdvReac Severe HEPATITIS Verified 07/26/21 11:48 clavulanic acid AdvReac Mild NAUSEA = Verified 07/26/21 11:48 BetaLactomase inhibitors Medications Home Medications Medication Instructions Recorded Confirmed Last Taken cetirizine 10 mg tablet 10 mg PO HS tab 12/25/20 07/26/21 Unknown cholecalciferol (vitamin D3) 25 1,000 unit PO QAM tab 12/25/20 07/26/21 Unknown mcg (1,000 unit) tablet citalopram 10 mg tablet 10 mg PO HS tab 12/25/20 07/26/21 Unknown ezetimibe 10 mg tablet 10 mg PO HS tab 12/25/20 07/26/21 Unknown metoprolol tartrate 25 mg tablet 25 mg PO QAM tab 12/25/20 07/26/21 Unknown omega-3 acid ethyl esters 1 gram 2 cap PO HS cap 12/25/20 07/26/21 Unknown capsule omeprazole 20 mg capsule,delayed 20 mg PO HS 12/25/20 07/26/21 Unknown release potassium chloride 10 mEq 10 meq PO QAM cap 12/25/20 07/26/21 Unknown capsule,extended release raloxifene 60 mg tablet 60 mg PO DAILY tab 12/25/20 07/26/21 Unknown rosuvastatin 5 mg tablet 5 mg PO QAM tab 12/25/20 07/26/21 Unknown trazodone 150 mg tablet 50 mg PO HS tab 12/25/20 07/26/21 Unknown valacyclovir 500 mg tablet 500 mg PO QAM tab 12/25/20 07/26/21 Unknown apixaban 5 mg tablet (Eliquis) 5 mg PO BID #60 tab 01/02/21 07/26/21 Unknown aspirin 81 mg tablet,delayed 81 mg PO HS 01/02/21 07/26/21 Unknown release montelukast 10 mg tablet 10 mg PO DAILY #30 tab 01/02/21 07/26/21 Unknown levothyroxine 100 mcg tablet 100 mcg PO QAM 07/26/21 07/26/21 Unknown oxycodone 5 mg tablet 5 - 10 mg PO Q4H PRN #20 tab 07/26/21 Unknown Past Medical History Medical History Allergic rhinitis Depression Esophageal reflux HTN (hypertension) HX: breast cancer 2016 lumpectomy > left Hyperlipidemia Hypothyroidism Osteoporosis Paroxysmal atrial fibrillation Eliquis/metoprolol> follows with Dr. Mckenzie Past Family History Family History Mother Diabetes Past Surgical History Surgical History H/O adenoidectomy History of cardiac cath 2005 > no stents History of colonoscopy History of lumpectomy of left breast History of tonsillectomy S/P appendectomy S/P partial hysterectomy Social History Smoking Status: Never smoker Do You Dip or Chew Tobacco: No Hx Alcohol Use: Yes Alcohol type: wine alcohol intake frequency: 0-2 drinks per day Hx Substance Use: No Testing Laboratory Results 06/04/21 WBC 6.06 H/H 10.9/32.4 PLATELETS 326 Macrocytic anemia reviewed by PCP per note 06/21/21 > he has referred patient to hematology for further evaluation (appt has not happened yet) 06/18/21 SODIUM 143 POTASSIUM 4.5 CHLORIDE 106 CO2 24 BUN 8 CREATININE 0.7 GLUCOSE 93 AST 326 Alk phos 137 Total bilirubin 0.3 ALT 81 Electrocardiogram Date: 05/29/20 Sinus bradycardia with first-degree AV block at 49 bpm. Otherwise normal ECG. Stress Test Date: 08/20/20 Type: DSE Stress echo negative for inducible ischemia. LVEF 55 to 59%. Grade 2 diastolic dysfunction. Mild AV sclerosis. 105% MPHR.
[2021-08-01] MEDS ORDERED: ceFAZolin 2000MG 2,000 MG/15 ML SYR IV SCH (06:00)
[2021-08-01] MEDS ORDERED: LR 60ML/HR IV SCH (06:00)
[2021-08-01] MEDS ORDERED: dexAMETHasone 4 MG TAB PO SCH (06:00)
[2021-08-01] MEDS ORDERED: LIDOCAINE 2% 2 ML VIAL/AMP(20MG/ML) INFIL ONE ×2 (06:33→06:48)
[2021-08-01] MEDS ORDERED: DEXAMETHASONE SOD INJ 4 MG/ML VIAL ONE (06:33)
[2021-08-01] MEDS ORDERED: ROPIVACAINE 0.5% 5 MG/ML 30 ML VIAL ONE (06:33)
[2021-08-01] MEDS ORDERED: MIDAZOLAM HCL 1 MG/ML 2ML VIAL ONE (06:48)
[2021-08-01] MEDS ORDERED: fentaNYL citrate 100 MCG/2 ML VIAL ONE ×3 (06:48→11:26)
[2021-08-01] MEDS ORDERED: PROPOFOL IV EMULSION 10 MG/ML 20 ML VIAL IV ONE (06:48)
--- NOTE | 2021-08-01 07:08 | History & Physical Bridge Note ---
Date of Service August 01, 2021 History & Physical Bridge Note I have examined the patient, reviewed the History & Physical and in the interval since the performance of the History & Physical I have noted the following changes of clinical significance: no changes noted Patient is aware of COVID-19 risks. Patient is asymptomatic for COVID-19. Patient has been tested for COVID-19 - [NEGATIVE].
[2021-08-01] MEDS ORDERED: BUPIVACAINE 0.5 % 5 MG/1 ML MPF 30ML VIAL ONE (07:24)
[2021-08-01] MEDS ORDERED: HYDROmorphone INJ 2 MG/ML SYR/VIAL IV PRN (08:46)
[2021-08-01] MEDS ORDERED: fentaNYL citrate 100 MCG/2 ML VIAL IV PRN (08:46)
[2021-08-01] MEDS ORDERED: ePHEDrine sulfate 50 MG/ML AMP IV PRN (08:46)
[2021-08-01] MEDS ORDERED: ATROPINE SULFATE 0.1 MG/ML 10ML SYR IV PRN (08:46)
[2021-08-01] MEDS ORDERED: TRANEXAMIC ACID / 0.7% NACL 1000MG/100ML BAG IV ONE (09:00)
[2021-08-01] MEDS ORDERED: ONDANSETRON INJ 2 MG/ML 2 ML VIAL ONE (09:42)
[2021-08-01] MEDS ORDERED: GLYCOPYRROLATE 0.2 MG/ML VIAL ONE (09:42)
[2021-08-01] MEDS ORDERED: ROCURONIUM BROMIDE 10 MG/ML 5 ML VIAL IV ONE (09:42)
[2021-08-01] MEDS ORDERED: NEOSTIGMINE METHYLSULFATE 1 MG/ML 10ML VIAL ONE (09:42)
[2021-08-01] MEDS ORDERED: PHENYLEPHRINE 100MCG/ML 5ML SYR ONE (09:42)
[2021-08-01 10:56] LABS: Hematocrit (blood only) 23.8 % (37-47); Hemoglobin 7.7 g/dL (12.0-16.0)
[2021-08-01] MEDS ORDERED: SODIUM CHLORIDE 0.9% 250 ML IV PRN (11:01)
--- NOTE | 2021-08-01 11:32 | Post Operative Brief Note ---
PG Immediate Post Op with CF Date of Surgery August 01, 2021 Pre & Post Diagnosis Operation Date: 08/01/21 07:15 Pre-Op Diagnosis: Left Proximal Humerus fracture Post-Op Diagnosis: Left Proximal Humerus fracture I identified the patient and participated in the time-out.: Yes Procedure Operation Date: 08/01/21 07:15 Actual Procedures p Open Reduction Internal Fixation Left Proximal Humerus(Left) - Jace Greer MD Surgeon Jace Greer MD Cancer Registry Coordinator Dale Corbett PA-C Estimated Blood Loss 600 Findings Consistent with Post-Op Diagnosis Specimens Specimen Description: no specimen per surgeon
[2021-08-01] MEDS ORDERED: ONDANSETRON INJ 2 MG/ML 2 ML VIAL IV PRN (11:46)
--- NOTE | 2021-08-01 12:02 | Fluoroscopy Report ---
FL humerus LT 2V CLINICAL HISTORY: ORIF LT TECHNIQUE: 3 views were obtained with the C-arm in the OR with the above procedure. Total fluoroscopy time was 123 seconds. Total skin dose was 10.5 mGy. Comparison: Comparison is made to left humerus radiographs 07/16/2021 FINDINGS/IMPRESSION: Multiple intraoperative were obtained of the abdomen reduction internal fixation of the left humeral fracture. Please correlate with intraoperative fluoroscopy and operative report. ACT 112: Negative or not required by law. Electronically signed by: Luis Early M.D. 08/01/2021 12:01 PM
--- NOTE | 2021-08-01 12:21 | Operative Report ---
PG Post Operative Report Pre & Post Diagnosis Operation Date: 08/01/21 07:15 Pre-Op Diagnosis: Left Proximal Humerus fracture Post-Op Diagnosis: Left Proximal Humerus fracture I identified the patient and participated in the time-out.: Yes Procedure Operation Date: 08/01/21 07:15 Actual Procedures p Open Reduction Internal Fixation Left Proximal Humerus(Left) - Jace Greer MD Surgeon Jace Greer MD Director Of Scientific Research Dale Corbett PA-C Estimated Blood Loss 600 Findings See Below The proximal fragment was rotated and comminuted at the calcar. Fracture was provisionally reduced using the plate and rotational pins. A 5 hole proximal humerus plate and a bridge construct was the final fixation Specimens None Anesthesia Type General Regional Complications none Disposition Accompanied Patient To Recovery: No Disposition: Recovery Room Indications 65-year-old female sustained fall resulting in immediate pain in her left shoulder. She was diagnosed with a proximal humerus fracture in the emergency room. Due to lack of bed availability she was discharged with an outpatient for orthopedic follow-up. We planned operative fixation and had her medically cleared. She was seen in clinic prior to surgery. We discussed the risks and benefits and reasons for open reduction internal fixation. This is outlined in the preoperative note. Discussed the risk of fracture surgery include but not limited to infection, neurovascular injury, need for repeat or revision surgeries, failure to heal, malunion, symptomatic or problematic hardware requiring revision, blood clots, pain syndromes, and complications related to the anesthesia required for surgery. She asked appropriate questions, demonstrate good understanding, and wanted to proceed with surgery. Informed consent was obtained in clinic. Description of Procedure On the day of surgery, the patient was greeted in the preoperative holding area. The informed consent was reviewed and confirmed by myself and the patient. The patient identified the surgical site and was marked by me. The patient was then turned over to anesthesia. Anesthesia performed a regional anesthetic block with excellent effect. Patient was then taken to the operating place upon the OR table and anesthesia was induced. The airway was secured. We then positioned the arm on the beachchair apparatus to ensure adequate visualization for fluoroscopy. The patient was positioned in the beachchair with all bony prominences well- padded. The operative extremity was then prepped and draped in usual sterile fashion for beachchair position with the head elevated approximately 30 degrees. The arm was placed in Trimano arm positioner to assist with positioning. Surgical timeout was called by the circulating nurse and verified all present. Antibiotics been infused and equipment was available and functional. Standard deltopectoral incision was made sharply, and the cephalic vein was diss ected and protected medially. The anterior aspect of the deltoid insertion was slightly released a few millimeters to facilitate exposure. The pec tendon and falciform ligament slightly released. There was significant medialization of the shaft and disruption of her pectoralis musculotendinous junction. The bicep tendon was ecchymotic and diminutive and mostly ruptured. There is significant hematoma in the area of the circumflex humeral artery, as of its compromise from the fracture. Fracture fragments were identified and longitudinal traction rotation was used to provisionally reduce. Fracture debris was cleaned up using irrigation and sharp debridement. There is significant comminution on the posterior lateral aspect of the humeral shaft of the head to the metadiaphyseal junction. . The medial calcar was visible and the spike on the proximal fragment was used as the fracture gonzalez, but it was fragmented and comminuted. Without reasonable fracture keys, we moved first to position a plate appropriately on the proximal fragment. A 3.2 mm pin was placed in the anterior aspect of the greater tuberosity and used to rotate the humeral head fragment. Plate was provisionally placed and pinned. Fluoroscopy was used to guide our anatomy and ensure appropriate proximal plate position on the humeral head. This had to be revised several times until we had adequate confidence in our plate position on the proximal fragment. We then used a fracture reduction clamp around the plate and around the remnant of the calcar to reduce the shaft back to the plate, which was containing it laterally. We then used traction and rotation through the Trimano, and studied the reduction on fluoroscopy. Once we had reasonable anatomic reduction, we began entering screws into the proximal fragment. Multiple locking screws were placed using the locking guides. Once there is control of the proximal fragment we checked final reduction to the shaft. A 5 hole plate was then placed and we ensured that it was adequate in length. The incision was extended and we explored the deltopectoral interval to its maximal extent on the humerus. Nonlocking screw was then placed in the most pro ximal portion of the shaft fragment to suck the plate down to bone. We then studied the reduction once again. We had loss cortical apposition of the calcar due to comminution, but the plate seem to restore anatomy and the relationship of the greater tuberosity to the shaft. There was some fracture gonzalez reduction guidance along the biceps groove. The reduction seemed adequate despite the calcar comminution. We then moved with final fixation. Nonlocking cortical screws were placed at the most distal end of the plate as well as more proximal shaft. We then use locking screws in the middle to shaft screw positions. I switched out the distal nonlocking screw for a locking screw to add to the stability of the bridge construct. All the proximal fragment locking screws were placed. The remained fragmentation along the calcar which I was able to salvage and uses bone graft into this region. It was tamped down into place. Final fluoroscopic views were obtained to ensure adequate screw position and reduction. The surgery site was then thoroughly irrigated using normal saline. The deltopectoral interval was approximated loosely with 0 Vicryl suture. Deep fascial tissue was approximated using 0 Vicryl suture. The dermal layer was approximated using interrupted 2-0 Vicryl suture. Final cutaneous staple closure was performed. The wound was dressed with sterile Xeroform, sterile gauze, and an ABD contained by [place]. The arm was then placed in a standard sling. She was then turned over anesthesia. Patient tolerated procedure well, was extubated the operative without complication, was transferred to the PACU in stable condition. Disposition: Patient will remain in the sling for 6 weeks and be nonweightbearing until radiographic evidence of some healing. Will approach motion in a conservative manner given the comminution. She can restart her Eliquis on postop day 1. She will be observed today, and admitted depending on her recovery. Her hemoglobin had drifted down to below 8, so we reflexively transfused her. She was also treated with TXA during the case. I attest to the content of the Intraoperative Record and any orders documented therein. Any exceptions are noted below.
[2021-08-01 13:04] LABS: iSTAT Creatinine 0.6 mg/dl (0.6-1.3); iSTAT Hemoglobin 8.8 g/dl (12.0-16.0); iSTAT Ionized Calcium 1.17 mmol/l (1.12-1.32); iSTAT Potassium 3.8 mmol/L (3.3-5.0)
--- NOTE | 2021-08-01 13:28 | Anesthesiology Progress Note ---
Date of Service August 01, 2021 Anesthesia Post Procedure Vital Signs Vital Signs: Temp Pulse Pulse Resp BP Pulse Ox 08/01/21 12:45 36.8 C 74 18 146/91 H 97 08/01/21 12:35 36.8 C 70 16 140/88 97 08/01/21 12:25 36.7 C 68 16 145/90 H 100 08/01/21 12:15 71 16 144/96 H 100 08/01/21 12:05 36.6 C 69 16 162/92 H 100 08/01/21 11:55 67 20 164/94 H 100 08/01/21 11:49 36.3 C L 73 18 169/97 H 100 08/01/21 05:35 37.5 C 81 18 133/79 99 Pain Intensity Left Arm: Pain Intensity: 7 Transfer of Care Handoff Completed per policy Notes Mental Status: alert / awake / arousable and participated in evaluation Patient Amnestic to Procedure: Yes Nausea / Vomiting: adequately controlled Pain: adequately controlled Airway Patency, RR, SpO2: stable & adequate BP & HR: stable & adequate Hydration State: stable & adequate Anesthetic Complications: no major complications apparent
[2021-08-01] MEDS: oxyCODONE/ACETAMINOPHEN 5mg/325mg TAB PO PRN ×2 (14:01→20:48)
[2021-08-01] MEDS ORDERED: CETIRIZINE HCL 10 MG TABLET PO SCH (21:00)
[2021-08-01] MEDS ORDERED: traZODone HCL 50 MG TAB PO SCH (21:00)
[2021-08-01] MEDS ORDERED: PANTOprazole 40 MG TAB PO SCH (21:00)
[2021-08-01] MEDS ORDERED: CITALOPRAM 20 MG TAB PO SCH (21:00)
[2021-08-01] MEDS ORDERED: EZETIMIBE 10 MG TABLET PO SCH (21:00)
[2021-08-01] MEDS ORDERED: OMEGA-3 (PURIFIED FISH OIL) 1 GM CAP PO SCH (21:00)
[2021-08-02] MEDS: oxyCODONE/ACETAMINOPHEN 5mg/325mg TAB PO PRN ×2 (02:45→08:05)
[2021-08-02] MEDS ORDERED: HYDROmorphone INJ 0.5 MG/0.5 ML SYR IV PRN (06:30)
[2021-08-02] MEDS ORDERED: LEVOTHYROXINE SODIUM 100 MCG TABLET PO SCH (06:30)
[2021-08-02] MEDS ORDERED: HYDROmorphone INJ 0.5 MG/0.5 ML SYR ONE (06:35)
[2021-08-02] MEDS ORDERED: POTASSIUM CHLORIDE 10 MEQ TABCR PO SCH (09:00)
[2021-08-02] MEDS ORDERED: CHOLECALCIFEROL 1,000 UNITS 25 MCG TAB PO SCH (09:00)
[2021-08-02] MEDS ORDERED: MONTELUKAST SODIUM 10 MG TABLET PO SCH (09:00)
[2021-08-02] MEDS ORDERED: valACYclovir HCL 500 MG TABLET PO SCH (09:00)
[2021-08-02] MEDS ORDERED: ROSUVASTATIN CALCIUM 5 MG TAB PO SCH (09:00)
[2021-08-02] MEDS ORDERED: METOPROLOL TARTRATE 25 MG TAB PO SCH (09:00)
[2021-08-02] MEDS ORDERED: RALOXIFENE HCL 60 MG TAB PO SCH (09:00)
--- NOTE | 2021-08-06 13:24 | Discharge Summary ---
Date of Service August 06, 2021 Admission HPI (Per Admitting) 65-year-old female who sustained a fall resulting in a proximal humerus fracture. She was managed as an outpatient initially and recommended surgery. She was admitted postoperatively for pain control and observation of hemodynamics after postoperative blood transfusion. Admission Exam (Per Admitting) Left shoulder: Dressing is clean dry and intact. She has full motor and sensation to her hand. Elbow range of motion intact. Constitutional well developed and well nourished; no acute distress and not intoxicated appearing ENMT external ear and nose normal, oropharynx normal Respiratory normal respiratory effort; no respiratory distress Cardiovascular Extremities: normal capillary refill; no edema Skin no rashes, warm and dry Psychiatric A+Ox3, euthymic affect Principal Diagnosis Same as "Discharge Diagnosis" noted below under Discharge Instructions. Discharge Exam Constitutional well developed and well nourished; no acute distress and not intoxicated appearing ENMT external ear and nose normal, oropharynx normal Respiratory normal respiratory effort; no respiratory distress Cardiovascular Extremities: normal capillary refill; no edema Skin no rashes, warm and dry Psychiatric A+Ox3, euthymic affect Discharge Data Procedures Performed Operation Date: 08/01/21 07:15 Actual Procedures p Open Reduction Internal Fixation Left Proximal Humerus(Left) - Jace Greer MD Ordered Studies 08/01/21 05:00 US - OR guided needle placemen Routine 08/01/21 07:15 FL humerus LT 2V Routine Hospital Course (1) Closed fracture of left proximal humerus: Patient was admitted preoperatively. She underwent the open reduction and internal fixation of her left proximal humerus. Intraoperatively she had a moderate amount of blood loss and her hematocrit was less than 8. For that reason, anesthesia ordered a blood transfusion which she tolerated well intraoperatively. She did well in the postoperative recovery area however she had some mild syncopal sensation with attempting to ambulate. For that reason, she was admitted overnight for observation. The morning after surgery, she was comfortable and ambulating confidently. She was found to be stable for discharge home to outpatient care with her daughter. PG Care Time/CCT Total # of Minutes Spent Total Time Spent with Patient: Total time spent is greater than 50% in coordination of care (as documented) at patient's floor/unit and/or counseling patient: Discharge Plan Discharge Items Patient Disposition: Home - Self-Care Reason For Visit: Left Proximal Humerus ORIF Discharge Diagnosis: Proximal humerus fracture Activity: Per Instructions section Non-emergency contact: Surgeon Call non-emergency contact if: you have any medication questions, your pain is not controlled and your temperature is above 101 Follow-up/Referrals: Jace Greer MD [Surgeon] - Dylan Mckenzie DO [Primary Care Provider] - Diet: Regular Addtl Attending Provider Instructions: Jace Greer M.D. [facility] [address] [facility], [place] [address] SHOULDER PROCEDURES WOUND CARE: Leave your dressing in place and keep the area clean and dry. After 3 days, you may remove your dressing. DO NOT REMOVE ANY SUTURES. After removing your dressing, you may begin to shower.. Do not soak the incision. Allow gentle soap and water to run over the wound(s) and pat dry. Please cover the incision(s) with a clean, dry dressing, as needed. Do not use any ointments or topical medications unless directed by your surgeon. Do not submerse the incisions in water no pools, oceans, lakes, jacuzzis, bathtubs, etc for at least 3 weeks. ACTIVITY: Remain in the sling provided. Do not lift anything heavier than a cup of coffee with that hand. You may type or use a keyboard as tolerated. You may come out of the sling for careful hygiene and Range of Motion exercises, only. Please perform ROM (range of motion) exercises at least three times daily: 1. Wrist flexion and extension 2. Finger pump 3. Elbow flexion/extension and forearm rotation 4. Supported Codmans Exercises come out of sling, dangle your affected arm. Use your nonoperative (good) arm to support your operative (getting better!) arm at the elbow. Gently rotate/swing your operative arm in a pendulum motion for 1-2 minutes. Rest. Repeat three times. Do not reach out to your side (do not rotate your hand laterally NO EXTERNAL ROTATION) PAIN CONTROL: Use frequent ice to reduce amount of pain medications. Use for 30 minutes per hour. Do not leave in place longer than 30 minutes, especially when your block is in effect, to prevent frostbite or thermal injury. Medications: 1. Oxycodone (OxyIR) 1-2 tablet(s) orally every 4 hours for pain as needed. Use with Tylenol. Begin tapering OxyIR as soon as possible: reduce from 2 to 1 pills per dose, then spread out the doses over greater time intervals, then try to use only for therapy or for comfort while sleeping. Cont inue to use regular Tylenol until pain subsides. 2. Tylenol (325mg): 3 tablets every 8 hours orally. Regular dosing of Tylenol is an important part of your baseline pain control. Do not taper Tylenol until you have successfully tapered off of regular OxyIR. Do not take more than 3000mg of Tylenol per day. 3. Zofran 1 tablet orally every 6 hours as needed for nausea related to anesthesia, pain, and narcotic medications OVER THE COUNTER: Narcotics will cause constipation. Colace and or Miralax can help while you are taking oxycodone or other narcotics. 4. Colace (100mg): take 1-2 tabs twice daily to avoid constipation from OxyIR or other narcotics. 5. Miralax 1 tablespoon in a glass of water 2 times daily until normal bowel movements FOLLOWUP: 1. Ortho Clinic with Dr. Greer: You should be seen in 10-14 days. Please call immediately to schedule if you do not have an appointment. 2. PHYSICAL THERAPY: It is OK to be seen by your therapist before the orthopedic postop appointment, if a specific consult has been placed. Pending Studies at Discharge: No Stand-Alone Forms: My [facility] Mr. Youth, Smoking Cessation Medications and DC Order Prescriptions: New ondansetron HCl [Zofran] 4 mg tablet 4 mg PO Q6H PRN (Reason: nausea and vomiting) Qty: 12 RF: 0 Continued cholecalciferol (vitamin D3) 25 mcg (1,000 unit) tablet 1,000 unit PO QAM RF: 0 cetirizine 10 mg tablet 10 mg PO HS RF: 0 rosuvastatin 5 mg tablet 5 mg PO QAM RF: 0 ezetimibe 10 mg tablet 10 mg PO HS RF: 0 omeprazole 20 mg capsule,delayed release(DR/EC) 20 mg PO HS RF: 0 citalopram 10 mg tablet 10 mg PO HS RF: 0 metoprolol tartrate 25 mg tablet 25 mg PO QAM RF: 0 trazodone 150 mg tablet 50 mg PO HS RF: 0 potassium chloride 10 mEq capsule, extended release 10 meq PO QAM RF: 0 raloxifene 60 mg tablet 60 mg PO DAILY RF: 0 omega-3 acid ethyl esters 1 gram capsule 2 cap PO HS RF: 0 valacyclovir 500 mg tablet 500 mg PO QAM RF: 0 aspirin 81 mg tablet,delayed release (DR/EC) 81 mg PO HS RF: 0 montelukast 10 mg tablet 10 mg PO DAILY Qty: 30 RF: 11 Eliquis 5 mg tablet 5 mg PO BID Qty: 60 RF: 11 levothyroxine 100 mcg Tablet 100 mcg PO QAM RF: 0 No Action oxycodone 5 mg tablet 5 - 10 mg PO Q4H PRN (Reason: pain) Qty: 20 RF: 0 Discharge Orders: Discharge Order (Routine); Ordered 08/02/21 Ordered By: Messi Armijo/Other Patient Handouts: DVT Post Op Prevention Admission Data Admit Date/Time: 08/01/21 11:45 Attending Provider: Jace Greer Admit Provider: Jace Greer Primary Care Provider: Dylan Mckenzie Other Providers: Messi Corbett Other Interventions: Discharge Summary Assessment (RN) Last Done: 08/02/21 08:33
== END 2021-08-02 10:34 | disposition home or self-care (01) ==
LOC: PACUINP 05:20 → ASU 05:20